=== PATIENT | male | born 1970 | race African-American/Black ===

== ENCOUNTER 2016-11-14 16:15 | Emergency (ER) | payer MEDICAID, OTHER ==
[~2016-11-14] VITALS: Ht 167.6 cm; Wt 94.5 kg
[~2016-11-14 16:15] MED LIST: DSS100 PO; GABA-529 PO; INSU100V12 SQ; OMEP20 PO; QUET300T2 PO
[2016-11-14 16:46] LABS: GLUCOSE,POINT OF CARE 84 MG/DL (70-110)
[2016-11-14] MEDS ORDERED: LISI-660 PO (18:04)
[2016-11-14 18:07] LABS: GLUCOSE,POINT OF CARE 84 MG/DL (70-110)
[2016-11-14 18:58] LABS: BASOPHILS % (AUTO) 0.5 % (0.0-2.0); EOSINOPHILS % (AUTO) 1.6 % (1.0-6.0); HEMATOCRIT 43.5 % (41-53); HEMOGLOBIN 13.8 g/dL (13.5-17.5); LYMPHOCYTES # (AUTO) 4.4 K/uL (1.0-4.8); LYMPHOCYTES % (AUTO) 34.9 % (22.0-44.0); MEAN CORPUSCULAR HEMOGLOBIN 24.5 pg (26.0-34.0); MEAN CORPUSCULAR HGB CONC 31.8 G/dL (31.0-37.0); MEAN CORPUSCULAR VOLUME 77 fL (80-100); MONOCYTES # (AUTO) 0.7 K/uL (0.1-1.0); MONOCYTES % (AUTO) 5.9 % (2.0-9.0); NEUTROPHILS # (AUTO) 7.1 K/uL (1.8-7.7); NEUTROPHILS % (AUTO) 57.1 % (40.0-70.0); PLATELET COUNT (AUTO) 330 K/uL (150-450); RED BLOOD CELL COUNT(AUTO) 5.64 MIL/uL (4.50-5.90); RED CELL DISTRIBUTION WIDTH 14.6 % (11.5-14.5); WHITE BLOOD COUNT (AUTO) 12.5 K/uL (4.5-11.0)
[2016-11-14 19:13] LABS: ANION GAP 13 mmol/L (8-16); CARBON DIOXIDE 24 mmol/L (22-29); CHLORIDE 99 mmol/L (98-107); CREATININE 1.04 mg/dL (0.60-1.30); GLOMERULAR FILTR. RATE CALC > 60 mL/min (>60); POTASSIUM 3.5 mmol/L (3.5-5.1); PROTHROMBIN TIME 10.9 SEC (9.4-11.6); SODIUM SERUM 136 mmol/L (136-145); UREA NITROGEN, BLOOD 18 mg/dL (7-18)
[2016-11-14 19:39] LABS: ALANINE AMINOTRANSFERASE 116 U/L (12-78); ALBUMIN 4.1 g/dL (3.4-5.0); ASPARTATE AMINOTRANSFERASE 127 U/L (15-37); CREATINE KINASE MB 8.1 ng/mL (0-5); TOTAL PROTEIN, SERUM 8.3 g/dL (6.4-8.2)
[2016-11-14 19:45] LABS: CREATINE KINASE, TOTAL 1272 U/L (39-308)
[2016-11-14 19:47] LABS: B-TYPE NATRIURETIC PEPTIDE 9 pg/mL (0-100)
[2016-11-14 20:00] LABS: APPEARANCE,URINE CLEAR (CLEAR); GLUCOSE, URINE (UA) NEGATIVE (NEGATIVE); KETONES,URINE 40 mg/dL (NEGATIVE); LEUKOCYTE ESTERASE ,URINE NEGATIVE (NEGATIVE); OCCULT BLOOD,URINE NEGATIVE (NEGATIVE); PH,URINE 5.5 (5.0-8.0); PROTEIN,URINE SEE CONFIRM (NEGATIVE)
[2016-11-14 20:04] LABS: ADD UA MICROSCOPIC YES; RBC,URINE 0-2 /HPF (0-2); SULFOSALICYLIC ACID,URINE 1+ (Negative); WBC,URINE 0-2 /HPF (0-5)
[2016-11-14 20:05] LABS: SQUAMOUS EPITHELIAL CELL,UR Rare /LPF (None Seen)
[2016-11-14 20:17] LABS: RBC MORPHOLOGY COMMENT ABNORMAL RBC MORPH
[2016-11-14 20:39] VITALS: BP 156/85
== END 2016-11-14 20:43 | disposition home or self-care (01) ==
LOC: EMS 16:16
DX: R07.89 Other chest pain (principal); F15.10 Other stimulant abuse, uncomplicated; R10.13 Epigastric pain; E11.9 Type 2 diabetes mellitus without complications; I10 Essential (primary) hypertension; F20.0 Paranoid schizophrenia; Z79.4 Long term (current) use of insulin
CPT/HCPCS: 82962; 93005; 99285

== ENCOUNTER 2017-02-13 17:13 | Inpatient (IN) | payer MEDICAID, OTHER ==
[~2017-02-13] VITALS: Ht 172.7 cm; Wt 92.5 kg
[~2017-02-13 17:13] MED LIST changes: +LISI-660 PO
[2017-02-13 18:45] LABS: EOSINOPHILS % (AUTO) 6.3 % (1.0-6.0); HEMATOCRIT 45.4 % (41-53); HEMOGLOBIN 13.8 g/dL (13.5-17.5); LYMPHOCYTES # (AUTO) 2.2 K/uL (1.0-4.8); LYMPHOCYTES % (AUTO) 39.9 % (22.0-44.0); MEAN CORPUSCULAR HEMOGLOBIN 23.9 pg (26.0-34.0); MEAN CORPUSCULAR HGB CONC 30.3 G/dL (31.0-37.0); MEAN CORPUSCULAR VOLUME 79 fL (80-100); MONOCYTES # (AUTO) 0.3 K/uL (0.1-1.0); MONOCYTES % (AUTO) 5.8 % (2.0-9.0); NEUTROPHILS # (AUTO) 2.6 K/uL (1.8-7.7); PLATELET COUNT (AUTO) 263 K/uL (150-450); RED BLOOD CELL COUNT(AUTO) 5.75 MIL/uL (4.50-5.90); RED CELL DISTRIBUTION WIDTH 14.4 % (11.5-14.5); WHITE BLOOD COUNT (AUTO) 5.6 K/uL (4.5-11.0)
[2017-02-13 19:17] LABS: RBC MORPHOLOGY COMMENT ABNORMAL RBC MORPH
[2017-02-13 19:21] LABS: ANION GAP 5 mmol/L (8-16); CALCIUM, TOTAL 9.3 mg/dL (8.8-10.5); CARBON DIOXIDE 30 mmol/L (22-29); CHLORIDE 102 mmol/L (98-107); CREATININE 0.83 mg/dL (0.60-1.30); GLOMERULAR FILTR. RATE CALC > 60 mL/min (>60); POTASSIUM 4.2 mmol/L (3.5-5.1); SODIUM SERUM 137 mmol/L (136-145); UREA NITROGEN, BLOOD 7 mg/dL (7-18)
[2017-02-13 19:28] LABS: ALANINE AMINOTRANSFERASE 120 U/L (12-78); ALBUMIN 3.9 g/dL (3.4-5.0); ASPARTATE AMINOTRANSFERASE 26 U/L (15-37); BILIRUBIN,TOTAL 0.2 mg/dL (0.1-1.0); TOTAL PROTEIN, SERUM 8.2 g/dL (6.4-8.2)
[2017-02-13 19:47] LABS: GLUCOSE,POINT OF CARE 163 MG/DL (70-110)
[2017-02-13] MEDS ORDERED: LORazepam 2 MG TABLET PO ONE (20:15)
[2017-02-13] MEDS ORDERED: OxyCODONE HCL/ACETAMINOPHEN 5-325 MG TABLET PO ONE (20:30)
[2017-02-13] MEDS ORDERED: OLANZapine 5 MG RAPDIS TABLET PO PRN (20:45)
[2017-02-13] MEDS ORDERED: ZOLPIDEM TARTRATE 10 MG TABLET PO PRN (20:45)
[2017-02-13 21:29] LABS: CHOL/HDL RATIO 3.2 (4.2-7.3)
[2017-02-13 21:34] LABS: ADD UA MICROSCOPIC NO; APPEARANCE,URINE CLEAR (CLEAR); GLUCOSE, URINE (UA) NEGATIVE (NEGATIVE); KETONES,URINE NEGATIVE (NEGATIVE); LEUKOCYTE ESTERASE ,URINE NEGATIVE (NEGATIVE); OCCULT BLOOD,URINE NEGATIVE (NEGATIVE); PH,URINE 7.5 (5.0-8.0); PROTEIN,URINE NEGATIVE (NEGATIVE)
[2017-02-13] MEDS ORDERED: CloNIDine HCL 0.1 MG TABLET PO PRN (22:00)
[2017-02-13] MEDS ORDERED: DEXTROSE 50%-WATER 25 GM/50 ML SYRINGE IVP PRN (22:00)
[2017-02-13 22:30] VITALS: BP 160/102
[2017-02-14 06:36] LABS: GLUCOSE,POINT OF CARE 79 MG/DL (70-110)
[2017-02-14 06:59] VITALS: BP 141/89
[2017-02-14] MEDS: INSULIN ASPART 100 UNITS/ML SQ PRN (07:04)
[2017-02-14] MEDS ORDERED: HALOPERIDOL LACTATE 5 MG/ML VIAL IM ONE (09:45)
[2017-02-14] MEDS ORDERED: DiphenhydrAMINE HCL 50 MG/ML VIAL IM ONE (09:45)
[2017-02-14] MEDS ORDERED: LORazepam 2 MG/ML VIAL IM ONE (09:45)
[2017-02-14 12:12] LABS: GLUCOSE,POINT OF CARE 128 MG/DL (70-110)
[2017-02-14] MEDS ORDERED: PROMETHAZINE HCL 25 MG TABLET PO PRN (12:15)
[2017-02-14] MEDS ORDERED: HydrOXYzine PAMOATE 50 MG CAPSULE PO PRN (12:15)
[2017-02-14] MEDS ORDERED: ACETAMINOPHEN 325 MG TABLET PO PRN (12:15)
[2017-02-14] MEDS ORDERED: MAGNESIUM HYDROXIDE SUSPENSION 30 ML UDCUP PO PRN (12:15)
[2017-02-14] MEDS ORDERED: TUBERCULIN, PURIFIED PROTEIN DERIVATIVE 5 TU/0.1 ML SYG ID ONE (12:15)
[2017-02-14] MEDS ORDERED: GuaiFENesin/D-METHORPHAN [SUGAR-FREE] 200-20MG/10 ML SYRUP UDCUP PO PRN (12:15)
[2017-02-14] MEDS ORDERED: MAG HYDROX/AL HYDROX/SIMETH ES 30 ML SUSPENSION UDCUP PO PRN (12:15)
[2017-02-14] MEDS ORDERED: LOPERAMIDE HCL 2 MG CAPSULE PO PRN (12:15)
[2017-02-14 16:00] VITALS: BP 138/72
[2017-02-14] MEDS: THIAMINE HCL 100 MG TABLET PO SCH (17:32)
[2017-02-14] MEDS ORDERED: IBUPROFEN 600 MG TABLET PO PRN (17:45)
[2017-02-14] MEDS: QUEtiapine FUMARATE 200 MG TABLET PO SCH (21:00)
[2017-02-14] MEDS: INSULIN DETEMIR 100 UNITS/ML SQ SCH (21:00)
[2017-02-14] MEDS ORDERED: QUEtiapine FUMARATE 200 MG TABLET PO SCH (21:00)
[2017-02-14] MEDS: TraZODone HCL 150 MG TABLET PO SCH (21:00)
[2017-02-15] MEDS: QUEtiapine FUMARATE 100 MG TABLET PO PRN (00:17)
[2017-02-15] MEDS: LORazepam 2 MG TABLET PO PRN (00:17)
[2017-02-15 06:27] LABS: GLUCOSE,POINT OF CARE 132 MG/DL (70-110)
[2017-02-15] MEDS: LISINOPRIL 10 MG TABLET PO SCH (09:00)
[2017-02-15] MEDS: GABAPENTIN 100 MG CAPSULE PO SCH ×3 (09:00→16:48)
[2017-02-15] MEDS: FOLIC ACID 1 MG TABLET PO SCH (09:00)
[2017-02-15] MEDS: NALTREXONE HCL 50 MG TABLET PO SCH (09:00)
[2017-02-15] MEDS: MULTIVITAMINS WITH MINERALS, THERAPEUTIC TABLET PO SCH (09:00)
[2017-02-15] MEDS: THIAMINE HCL 100 MG TABLET PO SCH ×2 (09:00→16:48)
[2017-02-15] MEDS ORDERED: TraZODone HCL 150 MG TABLET PO ONE (09:15)
[2017-02-15] MEDS ORDERED: QUEtiapine FUMARATE 200 MG TABLET PO ONE (09:15)
[2017-02-15] MEDS: TraZODone HCL 150 MG TABLET PO SCH (21:00)
[2017-02-15] MEDS: QUEtiapine FUMARATE 200 MG TABLET PO SCH (21:00)
[2017-02-15] MEDS: INSULIN DETEMIR 100 UNITS/ML SQ SCH (21:00)
[2017-02-16] MEDS: LORazepam 2 MG TABLET PO PRN ×2 (06:38→08:25)
[2017-02-16] MEDS: INSULIN ASPART 100 UNITS/ML SQ PRN (07:03)
[2017-02-16] MEDS: LISINOPRIL 10 MG TABLET PO SCH (08:25)
[2017-02-16] MEDS: MULTIVITAMINS WITH MINERALS, THERAPEUTIC TABLET PO SCH (08:25)
[2017-02-16] MEDS: GABAPENTIN 100 MG CAPSULE PO SCH ×2 (08:25→12:42)
[2017-02-16] MEDS: THIAMINE HCL 100 MG TABLET PO SCH (08:25)
[2017-02-16] MEDS: FOLIC ACID 1 MG TABLET PO SCH (08:25)
[2017-02-16] MEDS: NALTREXONE HCL 50 MG TABLET PO SCH (08:25)
[2017-02-16] MEDS: QUEtiapine FUMARATE 100 MG TABLET PO PRN (08:27)
[2017-02-16 08:45] VITALS: BP 151/84
[2017-02-16] MEDS ORDERED: TRAZ150 PO (11:14)
[2017-02-16] MEDS ORDERED: NALT50 PO (11:14)
[2017-02-16 12:12] LABS: GLUCOSE,POINT OF CARE 266 MG/DL (70-110)
== END 2017-02-16 15:44 | disposition home or self-care (01) | DRG 750 ==
LOC: EMS 17:15 → 3EI 20:30
PROVIDERS: ADMIT Psychiatry & Neurology Psychiatry; ATTEND Psychiatry & Neurology Psychiatry
PROC: GZ51ZZZ Individual Psychotherapy, Behavioral (ICD-10-PCS; principal; 2017-02-13)
DX: F25.0 Schizoaffective disorder, bipolar type (principal); E11.40 Type 2 diabetes mellitus with diabetic neuropathy, unspecified; J44.9 Chronic obstructive pulmonary disease, unspecified; I10 Essential (primary) hypertension; F17.210 Nicotine dependence, cigarettes, uncomplicated; E66.9 Obesity, unspecified; F41.9 Anxiety disorder, unspecified; F19.10 Other psychoactive substance abuse, uncomplicated; Z53.29 Procedure and treatment not carried out because of patient's decision for other reasons; F12.90 Cannabis use, unspecified, uncomplicated; Z71.6 Tobacco abuse counseling; Z71.51 Drug abuse counseling and surveillance of drug abuser; Z91.19 Patient's noncompliance with other medical treatment and regimen; Z68.31 Body mass index [BMI] 31.0-31.9, adult; Z79.899 Other long term (current) drug therapy
CPT/HCPCS: 82962; 99285; G0480; J1200; J1630; J2060

== ENCOUNTER 2019-08-05 13:23 | Emergency (ER) | payer MEDICAID ==
[~2019-08-05] VITALS: Ht 167.6 cm; Wt 90.0 kg
[~2019-08-05 13:23] MED LIST changes: -DSS100 PO; +NALT50TA6 PO; -OMEP20 PO; +TRAZ150 PO
[2019-08-05] MEDS ORDERED: PERCT10 PO (13:39)
[2019-08-05] MEDS ORDERED: METF-960 PO (13:39)
[2019-08-05] MEDS ORDERED: ARIP5TAB8 PO (13:39)
[2019-08-05] MEDS ORDERED: SERT100T12 PO (13:39)
[2019-08-05 14:34] LABS: APPEARANCE,URINE CLEAR (CLEAR); BILIRUBIN,URINE NEGATIVE (NEGATIVE); GLUCOSE, URINE (UA) >=1000 mg/dL (NEGATIVE); KETONES,URINE TRACE mg/dL (NEGATIVE); LEUKOCYTE ESTERASE ,URINE NEGATIVE (NEGATIVE); NITRATE,URINE NEGATIVE (NEGATIVE); OCCULT BLOOD,URINE NEGATIVE (NEGATIVE); PH,URINE 5.5 (5.0-8.0); PROTEIN,URINE NEGATIVE (NEGATIVE)
[2019-08-05 14:47] LABS: BACTERIA,URINE None Seen /HPF (None Seen); RBC,URINE None Seen /HPF (0-2); SQUAMOUS EPITHELIAL CELL,UR Few /LPF (None Seen); WBC,URINE None Seen /HPF (0-5)
[2019-08-05 14:49] LABS: BASOPHILS % (AUTO) 0.7 % (0.0-2.0); HEMATOCRIT 43.5 % (41-53); HEMOGLOBIN 13.9 g/dL (13.5-17.5); LYMPHOCYTES # (AUTO) 1.4 K/uL (1.0-4.8); LYMPHOCYTES % (AUTO) 28.5 % (22.0-44.0); MEAN CORPUSCULAR HEMOGLOBIN 24.3 pg (26.0-34.0); MEAN CORPUSCULAR HGB CONC 31.9 G/dL (31.0-37.0); MEAN CORPUSCULAR VOLUME 76 fL (80-100); MONOCYTES # (AUTO) 0.3 K/uL (0.1-1.0); MONOCYTES % (AUTO) 6.8 % (2.0-9.0); PLATELET COUNT (AUTO) 234 K/uL (150-450); RED BLOOD CELL COUNT(AUTO) 5.71 MIL/uL (4.50-5.90); RED CELL DISTRIBUTION WIDTH 16.4 % (11.5-14.5)
[2019-08-05 15:05] LABS: ANION GAP 10 mmol/L (8-16); CALCIUM, TOTAL 8.7 mg/dL (8.8-10.5); CARBON DIOXIDE 26 mmol/L (22-29); CHLORIDE 99 mmol/L (98-107); CREATININE 0.93 mg/dL (0.60-1.30); GLOMERULAR FILTR. RATE CALC > 60 mL/min (>60); GLUCOSE,RANDOM 278 mg/dL (70-110); POTASSIUM 3.7 mmol/L (3.5-5.1); SODIUM SERUM 135 mmol/L (136-145); UREA NITROGEN, BLOOD 10 mg/dL (7-18)
[2019-08-05 15:12] LABS: ALANINE AMINOTRANSFERASE 23 U/L (12-78); ALBUMIN 3.6 g/dL (3.4-5.0); ALKALINE PHOSPHATASE 228 U/L (46-116); ASPARTATE AMINOTRANSFERASE 10 U/L (15-37); BILIRUBIN,TOTAL 0.3 mg/dL (0.1-1.0); TOTAL PROTEIN, SERUM 7.7 g/dL (6.4-8.2)
[2019-08-05 15:14] LABS: B-TYPE NATRIURETIC PEPTIDE 7 pg/mL (0-100)
[2019-08-05] MEDS ORDERED: ACETAMINOPHEN 500 MG TABLET PO ONE (15:45)
[2019-08-05 16:08] LABS: PLATELET MORPHOLOGY COMMENT LARGE PLTS PRESENT
[2019-08-05 16:10] VITALS: BP 133/88
== END 2019-08-05 16:11 | disposition home or self-care (01) ==
LOC: EMS 13:24
DX: E11.9 Type 2 diabetes mellitus without complications (principal); M79.10 Myalgia, unspecified site; R07.2 Precordial pain; F31.9 Bipolar disorder, unspecified; I10 Essential (primary) hypertension; F20.9 Schizophrenia, unspecified; Z79.899 Other long term (current) drug therapy; Z79.4 Long term (current) use of insulin; Z79.84 Long term (current) use of oral hypoglycemic drugs
CPT/HCPCS: 93005

== ENCOUNTER 2019-11-01 13:55 | Inpatient (IN) | payer MEDICAID ==
[~2019-11-01] VITALS: Ht 167.6 cm; Wt 76.7 kg
[~2019-11-01 13:55] MED LIST changes: -GABA-529 PO; +GABA-531 PO; +INSLAN SQ; -INSU100V12 SQ; -LISI-660 PO; +LISI-661 PO; +METF-960 PO; -NALT50TA6 PO; +SERT100T12 PO
[2019-11-01 19:52] VITALS: BP 114/72
[2019-11-01] MEDS ORDERED: HALOPERIDOL 5 MG TABLET PO PRN (20:00)
[2019-11-01] MEDS ORDERED: ZOLPIDEM TARTRATE 10 MG TABLET PO PRN (20:00)
[2019-11-01 20:25] VITALS: BP 104/60
[2019-11-01] MEDS ORDERED: INSULIN GLARGINE,HUM.REC.ANLOG 100 UNITS/ML SQ SCH (23:00)
[2019-11-02 01:07] VITALS: BP 124/63
[2019-11-02] MEDS: LORazepam 2 MG TABLET PO PRN ×2 (05:00→17:40)
[2019-11-02] MEDS ORDERED: GLUCAGON,HUMAN RECOMBINANT 1 MG VIAL IM PRN (05:45)
[2019-11-02 06:25] LABS: GLUCOMETER DEV NAME(LOC) BV2S.; GLUCOSE,POINT OF CARE 269 MG/DL (70-110)
[2019-11-02] MEDS: MetFORMIN HCL 500 MG TABLET PO SCH (06:40)
[2019-11-02] MEDS: INSULIN LISPRO 100 UNITS/ML SQ PRN ×4 (06:42→21:38)
[2019-11-02 09:00] VITALS: BP 136/74
[2019-11-02] MEDS: GABAPENTIN 300 MG CAPSULE PO SCH ×3 (09:55→16:30)
[2019-11-02] MEDS: LISINOPRIL 10 MG TABLET PO SCH (09:55)
[2019-11-02 12:36] LABS: GLUCOMETER DEV NAME(LOC) BV2S.; GLUCOSE,POINT OF CARE 279 MG/DL (70-110)
[2019-11-02 16:05] VITALS: BP 134/67
[2019-11-02 17:10] LABS: GLUCOMETER DEV NAME(LOC) BV2S.; GLUCOSE,POINT OF CARE 353 MG/DL (70-110)
[2019-11-02] MEDS: TraZODone HCL 150 MG TABLET PO SCH (20:15)
[2019-11-02] MEDS: QUEtiapine FUMARATE 300 MG TABLET PO SCH (20:16)
[2019-11-02] MEDS: SERTRALINE HCL 100 MG TABLET PO SCH (20:16)
[2019-11-02 21:03] LABS: GLUCOMETER DEV NAME(LOC) BV2S.; GLUCOSE,POINT OF CARE 219 MG/DL (70-110)
[2019-11-02] MEDS ORDERED: INSULIN GLARGINE,HUM.REC.ANLOG 100 UNITS/ML SQ SCH (23:00)
[2019-11-03 05:35] VITALS: BP 119/68
[2019-11-03 06:37] LABS: GLUCOMETER DEV NAME(LOC) BV2S.; GLUCOSE,POINT OF CARE 277 MG/DL (70-110)
[2019-11-03 07:17] LABS: BASOPHILS % (AUTO) 0.6 % (0.0-2.0); EOSINOPHILS % (AUTO) 2.9 % (1.0-6.0); HEMATOCRIT 36.6 % (41-53); HEMOGLOBIN 11.6 g/dL (13.5-17.5); LYMPHOCYTES # (AUTO) 3.1 K/uL (1.0-4.8); LYMPHOCYTES % (AUTO) 52.3 % (22.0-44.0); MEAN CORPUSCULAR HEMOGLOBIN 24.7 pg (26.0-34.0); MEAN CORPUSCULAR HGB CONC 31.6 G/dL (31.0-37.0); MEAN CORPUSCULAR VOLUME 78 fL (80-100); MONOCYTES # (AUTO) 0.7 K/uL (0.1-1.0); MONOCYTES % (AUTO) 11.4 % (2.0-9.0); NEUTROPHILS % (AUTO) 32.8 % (40.0-70.0); PLATELET COUNT (AUTO) 176 K/uL (150-450); RED BLOOD CELL COUNT(AUTO) 4.68 MIL/uL (4.50-5.90); RED CELL DISTRIBUTION WIDTH 15.4 % (11.5-14.5)
[2019-11-03] MEDS: MetFORMIN HCL 500 MG TABLET PO SCH (07:19)
[2019-11-03] MEDS: INSULIN LISPRO 100 UNITS/ML SQ PRN ×4 (07:20→21:11)
[2019-11-03 07:39] LABS: ALANINE AMINOTRANSFERASE 42 U/L (12-78); ALBUMIN 2.9 g/dL (3.4-5.0); ALKALINE PHOSPHATASE 189 U/L (46-116); ANION GAP 8 mmol/L (8-16); ASPARTATE AMINOTRANSFERASE 14 U/L (15-37); BILIRUBIN,TOTAL 0.1 mg/dL (0.1-1.0); CALCIUM, TOTAL 8.3 mg/dL (8.8-10.5); CARBON DIOXIDE 26 mmol/L (22-29); CHLORIDE 103 mmol/L (98-107); CHOL/HDL RATIO 2.7 (4.2-7.3); CHOLESTEROL 120 mg/dL (131-200); CREATININE 0.75 mg/dL (0.60-1.30); FREE T4 (FREE THYROXINE) 0.91 ng/dL (0.76-1.46); GLOMERULAR FILTR. RATE CALC > 60 mL/min (>60); GLUCOSE,RANDOM 285 mg/dL (70-110); HDL CHOLESTEROL 45 mg/dL (40-60); LDL CHOL (CALC.) 64 mg/dL (0-130); SODIUM SERUM 137 mmol/L (136-145); THYROID STIMULATING HORMONE 3.45 uIU/mL (0.36-3.74); TOTAL PROTEIN, SERUM 6.3 g/dL (6.4-8.2); TRIGLYCERIDES 55 mg/dL (15-150); UREA NITROGEN, BLOOD 7 mg/dL (7-18)
[2019-11-03 07:43] LABS: HEMOGLOBIN A1C 10.2 % (4.5-6.2)
[2019-11-03] MEDS: LISINOPRIL 10 MG TABLET PO SCH (08:17)
[2019-11-03] MEDS: GABAPENTIN 300 MG CAPSULE PO SCH ×3 (08:18→16:47)
[2019-11-03 08:50] VITALS: BP 126/76
[2019-11-03 11:07] LABS: GLUCOMETER DEV NAME(LOC) BV2S.; GLUCOSE,POINT OF CARE 204 MG/DL (70-110)
[2019-11-03 16:09] VITALS: BP 117/68
[2019-11-03] MEDS: LORazepam 2 MG TABLET PO PRN (16:47)
[2019-11-03 17:19] LABS: GLUCOMETER DEV NAME(LOC) BV2S.; GLUCOSE,POINT OF CARE 295 MG/DL (70-110)
[2019-11-03 20:34] LABS: GLUCOMETER DEV NAME(LOC) BV2S.; GLUCOSE,POINT OF CARE 325 MG/DL (70-110)
[2019-11-03] MEDS: TraZODone HCL 150 MG TABLET PO SCH (20:37)
[2019-11-03] MEDS: QUEtiapine FUMARATE 300 MG TABLET PO SCH (20:37)
[2019-11-03] MEDS: SERTRALINE HCL 100 MG TABLET PO SCH (20:37)
[2019-11-03] MEDS ORDERED: INSULIN GLARGINE,HUM.REC.ANLOG 100 UNITS/ML SQ SCH (21:00)
[2019-11-04 04:32] VITALS: BP 109/61
[2019-11-04 06:26] LABS: GLUCOMETER DEV NAME(LOC) BV2S.; GLUCOSE,POINT OF CARE 293 MG/DL (70-110)
[2019-11-04] MEDS: MetFORMIN HCL 500 MG TABLET PO SCH (07:16)
[2019-11-04] MEDS: INSULIN LISPRO 100 UNITS/ML SQ PRN ×4 (07:17→20:13)
[2019-11-04 08:25] VITALS: BP 140/80
[2019-11-04] MEDS: GABAPENTIN 300 MG CAPSULE PO SCH ×3 (10:02→16:41)
[2019-11-04] MEDS: LISINOPRIL 10 MG TABLET PO SCH (10:03)
[2019-11-04 11:25] LABS: GLUCOMETER DEV NAME(LOC) BV2S.; GLUCOSE,POINT OF CARE 390 MG/DL (70-110)
[2019-11-04 16:22] LABS: GLUCOMETER DEV NAME(LOC) BV2S.; GLUCOSE,POINT OF CARE 305 MG/DL (70-110)
[2019-11-04 16:29] VITALS: BP 120/80
[2019-11-04] MEDS: LORazepam 2 MG TABLET PO PRN (17:28)
[2019-11-04] MEDS: QUEtiapine FUMARATE 300 MG TABLET PO SCH (20:10)
[2019-11-04] MEDS: TraZODone HCL 150 MG TABLET PO SCH (20:11)
[2019-11-04] MEDS: SERTRALINE HCL 100 MG TABLET PO SCH ×2 (20:11→20:51)
[2019-11-04 20:19] LABS: GLUCOMETER DEV NAME(LOC) BV2S.; GLUCOSE,POINT OF CARE 338 MG/DL (70-110)
[2019-11-04] MEDS ORDERED: INSULIN GLARGINE,HUM.REC.ANLOG 100 UNITS/ML SQ SCH (21:00)
[2019-11-05 01:10] VITALS: BP 103/65
[2019-11-05] MEDS: LORazepam 2 MG TABLET PO PRN ×2 (04:27→14:05)
[2019-11-05 06:25] LABS: GLUCOMETER DEV NAME(LOC) BV2S.; GLUCOSE,POINT OF CARE 218 MG/DL (70-110)
[2019-11-05] MEDS: MetFORMIN HCL 500 MG TABLET PO SCH (06:45)
[2019-11-05] MEDS: INSULIN LISPRO 100 UNITS/ML SQ PRN ×2 (06:47→21:14)
[2019-11-05 08:31] VITALS: BP 107/72
[2019-11-05] MEDS: GABAPENTIN 300 MG CAPSULE PO SCH ×3 (08:54→17:38)
[2019-11-05] MEDS: LISINOPRIL 10 MG TABLET PO SCH (08:54)
[2019-11-05 16:33] VITALS: BP 131/79
[2019-11-05 17:00] LABS: GLUCOMETER DEV NAME(LOC) BV2S.; GLUCOSE,POINT OF CARE 472 MG/DL (70-110)
[2019-11-05] MEDS ORDERED: MAG HYDROX/AL HYDROX/SIMETH 30 ML SUSP UDCUP PO PRN (17:00)
[2019-11-05] MEDS ORDERED: INSULIN LISPRO 100 UNITS/ML SQ ONE (17:00)
[2019-11-05] MEDS: QUEtiapine FUMARATE 300 MG TABLET PO SCH (20:23)
[2019-11-05] MEDS: TraZODone HCL 150 MG TABLET PO SCH (20:23)
[2019-11-05 20:59] LABS: GLUCOMETER DEV NAME(LOC) BV2S.; GLUCOSE,POINT OF CARE 263 MG/DL (70-110)
[2019-11-05] MEDS ORDERED: INSULIN GLARGINE,HUM.REC.ANLOG 100 UNITS/ML SQ SCH (21:00)
[2019-11-05] MEDS: SERTRALINE HCL 100 MG TABLET PO SCH (21:00)
[2019-11-06 06:22] VITALS: BP 105/60
[2019-11-06 06:31] LABS: GLUCOMETER DEV NAME(LOC) BV2S.; GLUCOSE,POINT OF CARE 225 MG/DL (70-110)
[2019-11-06] MEDS: MetFORMIN HCL 500 MG TABLET PO SCH (06:35)
[2019-11-06] MEDS: INSULIN LISPRO 100 UNITS/ML SQ PRN (06:38)
== END 2019-11-06 08:20 | disposition home or self-care (01) | DRG 750 ==
LOC: B2S 20:05
PROVIDERS: ADMIT Psychiatry & Neurology Psychiatry; ATTEND Psychiatry & Neurology Psychiatry
DX: F25.0 Schizoaffective disorder, bipolar type (principal); E11.42 Type 2 diabetes mellitus with diabetic polyneuropathy; R45.851 Suicidal ideations; I10 Essential (primary) hypertension; F41.9 Anxiety disorder, unspecified; F10.10 Alcohol abuse, uncomplicated; R45.87 Impulsiveness; F19.90 Other psychoactive substance use, unspecified, uncomplicated; K44.9 Diaphragmatic hernia without obstruction or gangrene; Z59.0 Homelessness; Z79.899 Other long term (current) drug therapy; Z91.5 Personal history of self-harm
CPT/HCPCS: 83036; 84439; 84443; 87081; J1815

== ENCOUNTER 2023-01-02 13:46 | Inpatient (IN) | payer MEDICAID, OTHER ==
[~2023-01-02] VITALS: Ht 167.6 cm; Wt 93.9 kg
[~2023-01-02 13:46] MED LIST changes: +GABA-1181 PO; -GABA-531 PO; -LISI-661 PO; +LISI-893 PO; +METF-1211 PO; -METF-960 PO; +SERT-162 PO; -SERT100T12 PO; -TRAZ150 PO; +TRAZ150T80 PO
[2023-01-02 14:16] LABS: GLUCOMETER DEV NAME(LOC) ERT.5; GLUCOSE,POINT OF CARE 304 MG/DL (70-110)
[2023-01-02] MEDS ORDERED: LORazepam 2 MG TABLET PO ONE (16:30)
[2023-01-02] MEDS ORDERED: OLANZapine 5 MG TABLET PO ONE (16:30)
[2023-01-02] MEDS: OLANZapine 5 MG RAPDIS TABLET PO PRN (16:36)
[2023-01-02 16:58] LABS: APPEARANCE,URINE CLEAR (CLEAR); BILIRUBIN,URINE NEGATIVE (NEGATIVE); GLUCOSE, URINE (UA) >=1000 mg/dL (NEGATIVE); KETONES,URINE NEGATIVE (NEGATIVE); LEUKOCYTE ESTERASE ,URINE NEGATIVE (NEGATIVE); NITRATE,URINE NEGATIVE (NEGATIVE); OCCULT BLOOD,URINE NEGATIVE (NEGATIVE); PH,URINE 6.5 (5.0-8.0); PROTEIN,URINE TRACE mg/dL (NEGATIVE); SPECIFIC GRAVITIY, URINE 1.041 (1.003-1.030); UROBILINOGEN,URINE <=1.0 mg/dL (<=1.0)
[2023-01-02 17:14] LABS: BACTERIA,URINE None Seen /HPF (None Seen); RBC,URINE None Seen /HPF (0-2); SQUAMOUS EPITHELIAL CELL,UR None Seen /LPF (None Seen); WBC,URINE 0-2 /HPF (0-5)
[2023-01-02] MEDS ORDERED: ACETAMINOPHEN 325 MG TABLET PO PRN (21:00)
[2023-01-02] MEDS ORDERED: GuaiFENesin/D-METHORPHAN [SUGAR-FREE] 200-20MG/10 ML SYRUP UDCUP PO PRN (21:00)
[2023-01-02] MEDS ORDERED: OLANZapine 5 MG RAPDIS TABLET PO ONE (21:00)
[2023-01-02] MEDS ORDERED: MAGNESIUM HYDROXIDE SUSPENSION 30 ML UDCUP PO PRN (21:00)
[2023-01-02] MEDS ORDERED: HydrOXYzine PAMOATE 50 MG CAPSULE PO PRN (21:00)
[2023-01-02] MEDS ORDERED: PROMETHAZINE HCL 25 MG TABLET PO PRN (21:00)
[2023-01-02] MEDS ORDERED: TUBERCULIN, PURIFIED PROTEIN DERIVATIVE 5 TU/0.1 ML SYRINGE ID ONE (21:00)
[2023-01-02] MEDS ORDERED: LOPERAMIDE HCL 2 MG CAPSULE PO PRN (21:00)
[2023-01-02 22:10] LABS: COVID AG,FIA SOURCE NASAL SWAB
[2023-01-02] MEDS: GABAPENTIN 400 MG CAPSULE PO SCH (23:00)
[2023-01-02] MEDS: MIRTAZAPINE 15 MG TABLET PO SCH (23:00)
[2023-01-02 23:45] VITALS: BP 166/106
[2023-01-03 01:29] VITALS: BP 155/90
[2023-01-03] MEDS: LORazepam 2 MG TABLET PO PRN ×3 (04:37→22:29)
[2023-01-03] MEDS: MULTIVITAMINS WITH MINERALS, THERAPEUTIC TABLET PO SCH (09:46)
[2023-01-03] MEDS: BuPROPion HCL XL 150 MG ER TABLET PO SCH (09:46)
[2023-01-03] MEDS: GABAPENTIN 400 MG CAPSULE PO SCH ×4 (09:46→20:27)
[2023-01-03] MEDS: THIAMINE 100 MG TABLET PO SCH ×2 (09:46→16:59)
[2023-01-03] MEDS: FOLIC ACID 1 MG TABLET PO SCH (09:46)
[2023-01-03] MEDS ORDERED: DEXTROSE 50%-WATER 25 GM/50 ML SYRINGE IVP PRN (11:30)
[2023-01-03] MEDS: INSULIN LISPRO 100 UNITS/ML SQ PRN ×3 (11:46→21:07)
[2023-01-03 11:51] LABS: GLUCOMETER DEV NAME(LOC) 3E.C; GLUCOSE,POINT OF CARE 314 MG/DL (70-110)
[2023-01-03 12:49] LABS: BASOPHILS % (AUTO) 1.8 % (0.0-2.0); EOSINOPHILS % (AUTO) 1.8 % (1.0-6.0); HEMATOCRIT 32.7 % (41-53); HEMOGLOBIN 10.1 g/dL (13.5-17.5); LYMPHOCYTES # (AUTO) 2.3 K/uL (1.0-4.8); LYMPHOCYTES % (AUTO) 33.3 % (22.0-44.0); MEAN CORPUSCULAR HEMOGLOBIN 20.3 pg (26.0-34.0); MEAN CORPUSCULAR HGB CONC 30.8 G/dL (31.0-37.0); MEAN CORPUSCULAR VOLUME 66 fL (80-100); MONOCYTES # (AUTO) 0.4 K/uL (0.1-1.0); MONOCYTES % (AUTO) 5.8 % (2.0-9.0); NEUTROPHILS # (AUTO) 3.9 K/uL (1.8-7.7); NEUTROPHILS % (AUTO) 57.3 % (40.0-70.0); PLATELET COUNT (AUTO) 312 K/uL (150-450); RED BLOOD CELL COUNT(AUTO) 4.95 MIL/uL (4.50-5.90); RED CELL DISTRIBUTION WIDTH 19.9 % (11.5-14.5)
[2023-01-03 13:01] LABS: ALANINE AMINOTRANSFERASE 14 U/L (12-78); ALKALINE PHOSPHATASE 151 U/L (46-116); ANION GAP 7 mmol/L (8-16); ASPARTATE AMINOTRANSFERASE 12 U/L (15-37); BILIRUBIN,TOTAL 0.2 mg/dL (0.1-1.0); CALCIUM, TOTAL 8.5 mg/dL (8.8-10.5); CARBON DIOXIDE 29 mmol/L (22-29); CHLORIDE 101 mmol/L (98-107); CREATININE 0.94 mg/dL (0.60-1.30); GLOMERULAR FILTR. RATE CALC > 60 mL/min (>60); POTASSIUM 4.2 mmol/L (3.5-5.1); SODIUM SERUM 137 mmol/L (136-145); TOTAL PROTEIN, SERUM 6.8 g/dL (6.4-8.2); UREA NITROGEN, BLOOD 9 mg/dL (7-18)
[2023-01-03 13:11] LABS: GLUCOSE,RANDOM 438 mg/dL (70-110)
[2023-01-03 13:12] LABS: CHOL/HDL RATIO 2.5 (4.2-7.3); THYROID STIMULATING HORMONE 2.74 uIU/mL (0.36-3.74)
[2023-01-03] MEDS ORDERED: INSULIN LISPRO 100 UNITS/ML SQ ONE (13:30)
[2023-01-03] MEDS: MAG HYDROX/AL HYDROX/SIMETH ES 30 ML SUSPENSION UDCUP PO PRN (15:27)
[2023-01-03 16:27] VITALS: BP 143/102
[2023-01-03 16:56] LABS: GLUCOMETER DEV NAME(LOC) 3E.C; GLUCOSE,POINT OF CARE 359 MG/DL (70-110)
[2023-01-03] MEDS: MetFORMIN HCL 500 MG TABLET PO SCH (16:59)
[2023-01-03] MEDS: LISINOPRIL 10 MG TABLET PO SCH (16:59)
[2023-01-03] MEDS: OLANZapine 5 MG RAPDIS TABLET PO PRN (18:15)
[2023-01-03] MEDS ORDERED: PALIPERIDONE PALMITATE 234 MG/1.5 ML SYRINGE IM ONE (20:00)
[2023-01-03 20:26] LABS: GLUCOMETER DEV NAME(LOC) 3E.C; GLUCOSE,POINT OF CARE 330 MG/DL (70-110)
[2023-01-03] MEDS: QUEtiapine FUMARATE 200 MG TABLET PO SCH (20:26)
[2023-01-03] MEDS: MIRTAZAPINE 15 MG TABLET PO SCH (20:27)
[2023-01-03 20:37] VITALS: BP 140/75
[2023-01-03] MEDS ORDERED: OLANZapine 5 MG RAPDIS TABLET PO SCH (21:00)
[2023-01-03] MEDS: INSULIN GLARGINE,HUM.REC.ANLOG 100 UNITS/ML SQ SCH (21:08)
[2023-01-03] MEDS: ZOLPIDEM TARTRATE 10 MG TABLET PO PRN (22:28)
[2023-01-04 06:26] LABS: GLUCOMETER DEV NAME(LOC) 3E.C; GLUCOSE,POINT OF CARE 328 MG/DL (70-110)
[2023-01-04] MEDS: MetFORMIN HCL 500 MG TABLET PO SCH ×2 (06:42→16:42)
[2023-01-04] MEDS: INSULIN LISPRO 100 UNITS/ML SQ PRN ×4 (06:43→21:09)
[2023-01-04] MEDS: THIAMINE 100 MG TABLET PO SCH ×2 (09:03→16:42)
[2023-01-04] MEDS: LISINOPRIL 10 MG TABLET PO SCH ×2 (09:03→16:42)
[2023-01-04] MEDS: MULTIVITAMINS WITH MINERALS, THERAPEUTIC TABLET PO SCH (09:03)
[2023-01-04] MEDS: GABAPENTIN 400 MG CAPSULE PO SCH ×4 (09:03→20:49)
[2023-01-04] MEDS: FOLIC ACID 1 MG TABLET PO SCH (09:03)
[2023-01-04] MEDS: BuPROPion HCL XL 150 MG ER TABLET PO SCH (09:03)
[2023-01-04 09:09] LABS: HEMOGLOBIN A1C 11.3 % (3.8-5.6)
[2023-01-04 09:20] LABS: CHOL/HDL RATIO 2.6 (4.2-7.3)
[2023-01-04 09:29] VITALS: BP 145/98
[2023-01-04 11:46] LABS: GLUCOMETER DEV NAME(LOC) 3E.C; GLUCOSE,POINT OF CARE 295 MG/DL (70-110)
[2023-01-04] MEDS: LORazepam 2 MG TABLET PO PRN (16:00)
[2023-01-04] MEDS: MAG HYDROX/AL HYDROX/SIMETH ES 30 ML SUSPENSION UDCUP PO PRN (16:01)
[2023-01-04 16:22] VITALS: BP 153/87
[2023-01-04 17:16] LABS: GLUCOMETER DEV NAME(LOC) 3E.C; GLUCOSE,POINT OF CARE 388 MG/DL (70-110)
[2023-01-04] MEDS: QUEtiapine FUMARATE 100 MG TABLET PO PRN (19:00)
[2023-01-04] MEDS: QUEtiapine FUMARATE 200 MG TABLET PO SCH (20:49)
[2023-01-04] MEDS: MIRTAZAPINE 15 MG TABLET PO SCH (20:49)
[2023-01-04] MEDS: INSULIN GLARGINE,HUM.REC.ANLOG 100 UNITS/ML SQ SCH (21:09)
[2023-01-04 21:16] LABS: GLUCOMETER DEV NAME(LOC) 3E.C; GLUCOSE,POINT OF CARE 306 MG/DL (70-110)
[2023-01-04 21:29] VITALS: BP 133/75
[2023-01-05] MEDS: QUEtiapine FUMARATE 100 MG TABLET PO PRN (02:14)
[2023-01-05] MEDS: LORazepam 2 MG TABLET PO PRN (02:14)
[2023-01-05 05:46] LABS: GLUCOMETER DEV NAME(LOC) 3E.C; GLUCOSE,POINT OF CARE 349 MG/DL (70-110)
[2023-01-05] MEDS: MetFORMIN HCL 500 MG TABLET PO SCH ×2 (06:54→16:30)
[2023-01-05] MEDS: INSULIN LISPRO 100 UNITS/ML SQ PRN ×4 (06:55→22:16)
[2023-01-05] MEDS: MULTIVITAMINS WITH MINERALS, THERAPEUTIC TABLET PO SCH (08:44)
[2023-01-05] MEDS: THIAMINE 100 MG TABLET PO SCH ×2 (08:44→16:31)
[2023-01-05] MEDS: BuPROPion HCL XL 150 MG ER TABLET PO SCH (08:44)
[2023-01-05] MEDS: GABAPENTIN 400 MG CAPSULE PO SCH ×4 (08:44→22:06)
[2023-01-05] MEDS: LISINOPRIL 10 MG TABLET PO SCH ×2 (08:44→16:31)
[2023-01-05] MEDS: FOLIC ACID 1 MG TABLET PO SCH (08:44)
[2023-01-05 09:39] VITALS: BP 148/89
[2023-01-05] MEDS: OMEPRAZOLE 20 MG CAPSULE PO SCH (10:04)
[2023-01-05 11:46] LABS: GLUCOMETER DEV NAME(LOC) 3E.C; GLUCOSE,POINT OF CARE 262 MG/DL (70-110)
[2023-01-05 16:30] VITALS: BP 134/88
[2023-01-05 18:12] LABS: GLUCOMETER DEV NAME(LOC) 3E.C; GLUCOSE,POINT OF CARE 337 MG/DL (70-110)
[2023-01-05] MEDS ORDERED: INSULIN GLARGINE,HUM.REC.ANLOG 100 UNITS/ML SQ SCH (21:00)
[2023-01-05 21:35] VITALS: BP 152/91
[2023-01-05 21:46] LABS: GLUCOMETER DEV NAME(LOC) 3E.C; GLUCOSE,POINT OF CARE 293 MG/DL (70-110)
[2023-01-05] MEDS: QUEtiapine FUMARATE 200 MG TABLET PO SCH (22:05)
[2023-01-05] MEDS: MIRTAZAPINE 30 MG TABLET PO SCH (22:06)
[2023-01-05] MEDS: INSULIN GLARGINE,HUM.REC.ANLOG 100 UNITS/ML SQ SCH (22:11)
[2023-01-05] MEDS: ZOLPIDEM TARTRATE 10 MG TABLET PO PRN (23:25)
[2023-01-06] MEDS: MAG HYDROX/AL HYDROX/SIMETH ES 30 ML SUSPENSION UDCUP PO PRN ×2 (00:55→14:49)
[2023-01-06 06:41] LABS: GLUCOMETER DEV NAME(LOC) 3E.C; GLUCOSE,POINT OF CARE 249 MG/DL (70-110)
[2023-01-06] MEDS: MetFORMIN HCL 500 MG TABLET PO SCH ×2 (07:08→16:51)
[2023-01-06] MEDS: INSULIN LISPRO 100 UNITS/ML SQ PRN ×4 (07:09→21:25)
[2023-01-06] MEDS: LISINOPRIL 10 MG TABLET PO SCH ×2 (09:00→16:52)
[2023-01-06] MEDS: OMEPRAZOLE 20 MG CAPSULE PO SCH (09:04)
[2023-01-06] MEDS: BuPROPion HCL XL 150 MG ER TABLET PO SCH (09:05)
[2023-01-06] MEDS: FOLIC ACID 1 MG TABLET PO SCH (09:06)
[2023-01-06] MEDS: THIAMINE 100 MG TABLET PO SCH ×2 (09:06→16:51)
[2023-01-06] MEDS: GABAPENTIN 400 MG CAPSULE PO SCH ×4 (09:06→21:15)
[2023-01-06] MEDS: MULTIVITAMINS WITH MINERALS, THERAPEUTIC TABLET PO SCH (09:06)
[2023-01-06 12:16] LABS: GLUCOMETER DEV NAME(LOC) 3E.C; GLUCOSE,POINT OF CARE 217 MG/DL (70-110)
[2023-01-06 16:41] LABS: GLUCOMETER DEV NAME(LOC) 3E.C; GLUCOSE,POINT OF CARE 317 MG/DL (70-110)
[2023-01-06 20:17] VITALS: BP 118/77
[2023-01-06 21:06] LABS: GLUCOMETER DEV NAME(LOC) 3E.C; GLUCOSE,POINT OF CARE 302 MG/DL (70-110)
[2023-01-06] MEDS: MIRTAZAPINE 30 MG TABLET PO SCH (21:15)
[2023-01-06] MEDS: QUEtiapine FUMARATE 200 MG TABLET PO SCH (21:15)
[2023-01-06] MEDS: INSULIN GLARGINE,HUM.REC.ANLOG 100 UNITS/ML SQ SCH (21:24)
[2023-01-07] MEDS: ZOLPIDEM TARTRATE 10 MG TABLET PO PRN (02:37)
[2023-01-07] MEDS: LORazepam 2 MG TABLET PO PRN (02:37)
[2023-01-07 05:41] LABS: GLUCOMETER DEV NAME(LOC) 3EX.2; GLUCOSE,POINT OF CARE 243 MG/DL (70-110)
[2023-01-07] MEDS: MetFORMIN HCL 500 MG TABLET PO SCH (06:57)
[2023-01-07] MEDS: INSULIN LISPRO 100 UNITS/ML SQ PRN ×2 (07:07→11:42)
[2023-01-07 08:56] VITALS: BP 111/74
[2023-01-07] MEDS ORDERED: PALIPERIDONE PALMITATE 156 MG/ML SYRINGE IM ONE (09:00)
[2023-01-07] MEDS: FOLIC ACID 1 MG TABLET PO SCH (09:24)
[2023-01-07] MEDS: BuPROPion HCL XL 150 MG ER TABLET PO SCH (09:25)
[2023-01-07] MEDS: MULTIVITAMINS WITH MINERALS, THERAPEUTIC TABLET PO SCH (09:25)
[2023-01-07] MEDS: OMEPRAZOLE 20 MG CAPSULE PO SCH (09:26)
[2023-01-07] MEDS: GABAPENTIN 400 MG CAPSULE PO SCH ×2 (09:26→12:00)
[2023-01-07] MEDS: LISINOPRIL 10 MG TABLET PO SCH (09:26)
[2023-01-07] MEDS: THIAMINE 100 MG TABLET PO SCH (09:26)
[2023-01-07] MEDS ORDERED: THIA100T80 PO (11:32)
[2023-01-07] MEDS ORDERED: GABA-1201 PO (11:32)
[2023-01-07] MEDS ORDERED: QUET200T30 PO (11:32)
[2023-01-07] MEDS ORDERED: BUPR-49 PO (11:32)
[2023-01-07] MEDS ORDERED: MIRT-93 PO (11:32)
[2023-01-07 11:46] LABS: GLUCOMETER DEV NAME(LOC) 3E.C; GLUCOSE,POINT OF CARE 300 MG/DL (70-110)
[2023-01-07] MEDS ORDERED: LISI-893 PO (12:35)
[2023-01-07] MEDS ORDERED: METF-1211 PO (12:35)
[2023-01-07] MEDS ORDERED: OMEP20 PO (12:35)
[2023-01-07] MEDS ORDERED: INSLAN SQ (12:35)
[2023-01-07] MEDS ORDERED: INSULIN GLARGINE,HUM.REC.ANLOG 100 UNITS/ML SQ SCH (21:00)
== END 2023-01-07 13:05 | disposition home or self-care (01) | DRG 750 ==
LOC: EMS 13:46 → UNDOADMIN 18:20 → 3EI 18:20 → 3EX 01-04 22:24
PROVIDERS: ADMIT Psychiatry & Neurology Psychiatry; ATTEND Psychiatry & Neurology Psychiatry
DX: F25.9 Schizoaffective disorder, unspecified (principal); R45.851 Suicidal ideations; E11.9 Type 2 diabetes mellitus without complications; E78.00 Pure hypercholesterolemia, unspecified; E66.9 Obesity, unspecified; D64.9 Anemia, unspecified; F12.90 Cannabis use, unspecified, uncomplicated; F17.200 Nicotine dependence, unspecified, uncomplicated; F31.9 Bipolar disorder, unspecified; F41.0 Panic disorder [episodic paroxysmal anxiety]; I10 Essential (primary) hypertension; Z20.822 Contact with and (suspected) exposure to COVID-19; K46.9 Unspecified abdominal hernia without obstruction or gangrene; J44.9 Chronic obstructive pulmonary disease, unspecified; E78.5 Hyperlipidemia, unspecified; Z55.9 Problems related to education and literacy, unspecified; Z59.9 Problem related to housing and economic circumstances, unspecified; Z63.9 Problem related to primary support group, unspecified; Z65.3 Problems related to other legal circumstances; Z91.51 Personal history of suicidal behavior; Z68.33 Body mass index [BMI] 33.0-33.9, adult; Z79.899 Other long term (current) drug therapy
CPT/HCPCS: 80053; 80061; 81001; 82962; 83036; 84439; 84443; 85025; 86592; 99285; G0378; J1815

== ENCOUNTER 2023-03-01 11:07 | Inpatient (IN) | payer MEDICAID ==
[~2023-03-01] VITALS: Ht 170.2 cm; Wt 90.0 kg
[~2023-03-01 11:07] MED LIST changes: +BUPR-49 PO; -GABA-1181 PO; +GABA-1201 PO; +MIRT-93 PO; +OMEP20 PO; +QUET200T30 PO; -QUET300T2 PO; -SERT-162 PO; +THIA100T80 PO; -TRAZ150T80 PO
[2023-03-01 14:16] LABS: BASOPHILS % (AUTO) 1.1 % (0.0-2.0); EOSINOPHILS % (AUTO) 2.5 % (1.0-6.0); HEMATOCRIT 33.5 % (41-53); HEMOGLOBIN 10.3 g/dL (13.5-17.5); LYMPHOCYTES # (AUTO) 1.8 K/uL (1.0-4.8); LYMPHOCYTES % (AUTO) 29.3 % (22.0-44.0); MEAN CORPUSCULAR HEMOGLOBIN 20.1 pg (26.0-34.0); MEAN CORPUSCULAR HGB CONC 30.6 G/dL (31.0-37.0); MEAN CORPUSCULAR VOLUME 66 fL (80-100); MONOCYTES # (AUTO) 0.4 K/uL (0.1-1.0); MONOCYTES % (AUTO) 6.8 % (2.0-9.0); NEUTROPHILS # (AUTO) 3.7 K/uL (1.8-7.7); NEUTROPHILS % (AUTO) 60.3 % (40.0-70.0); PLATELET COUNT (AUTO) 327 K/uL (150-450); RED CELL DISTRIBUTION WIDTH 21.9 % (11.5-14.5)
[2023-03-01 14:28] LABS: AMPHET/METH SCREEN,URINE NEGATIVE (NEGATIVE); BARBITURATE SCREEN, URINE NEGATIVE (NEGATIVE); BENZODIAZEPINES SCREEN,URINE NEGATIVE (NEGATIVE); CANNABINOID SCREEN,URINE NEGATIVE (NEGATIVE); COCAINE SCREEN,URINE NEGATIVE (NEGATIVE); METHADONE SCREEN, URINE NEGATIVE (NEGATIVE); OPIATE SCREEN,URINE NEGATIVE (NEGATIVE); PHENCYCLIDINE SCREEN,URINE NEGATIVE (NEGATIVE)
[2023-03-01 14:30] LABS: ALANINE AMINOTRANSFERASE 22 U/L (12-78); ALBUMIN 2.8 g/dL (3.4-5.0); ALKALINE PHOSPHATASE 164 U/L (46-116); ANION GAP 10 mmol/L (8-16); ASPARTATE AMINOTRANSFERASE 17 U/L (15-37); BILIRUBIN,TOTAL 0.2 mg/dL (0.1-1.0); CALCIUM, TOTAL 8.6 mg/dL (8.8-10.5); CARBON DIOXIDE 27 mmol/L (22-29); CHLORIDE 100 mmol/L (98-107); CREATININE 0.87 mg/dL (0.60-1.30); GLOMERULAR FILTR. RATE CALC > 60 mL/min (>60); POTASSIUM 4.4 mmol/L (3.5-5.1); SODIUM SERUM 137 mmol/L (136-145); TOTAL PROTEIN, SERUM 6.7 g/dL (6.4-8.2)
[2023-03-01] MEDS ORDERED: QUEtiapine FUMARATE 100 MG TABLET PO ONE (14:30)
[2023-03-01 14:40] LABS: GLUCOSE,RANDOM 459 mg/dL (70-110)
[2023-03-01] MEDS ORDERED: INSULIN REGULAR, HUMAN 100 UNITS/ML IVP ONE (14:45)
[2023-03-01] MEDS ORDERED: SODIUM CHLORIDE 0.9% 1,000 ML IV ONE (14:45)
[2023-03-01] MEDS ORDERED: LORazepam 2 MG/ML VIAL ONE (14:58)
[2023-03-01] MEDS ORDERED: HALOPERIDOL LACTATE 5 MG/ML VIAL ONE (14:58)
[2023-03-01] MEDS ORDERED: DiphenhydrAMINE HCL 50 MG/ML VIAL ONE (14:58)
[2023-03-01] MEDS ORDERED: HALOPERIDOL LACTATE 5 MG/ML VIAL IM ONE (15:00)
[2023-03-01] MEDS ORDERED: DiphenhydrAMINE HCL 50 MG/ML VIAL IM ONE (15:00)
[2023-03-01] MEDS ORDERED: LORazepam 2 MG/ML VIAL IM ONE (15:00)
[2023-03-01 16:20] LABS: COVID AG,FIA SOURCE NASOPHARYNGEAL
[2023-03-01 18:26] VITALS: BP 156/96
[2023-03-01] MEDS ORDERED: ACETAMINOPHEN 325 MG TABLET PO PRN (18:45)
[2023-03-01] MEDS ORDERED: IBUPROFEN 600 MG TABLET PO PRN (18:45)
[2023-03-01] MEDS ORDERED: DOCUSATE SODIUM 100 MG CAPSULE PO PRN (18:45)
[2023-03-01] MEDS ORDERED: BACITRACIN 28 GM OINTMENT TP PRN (18:45)
[2023-03-01] MEDS ORDERED: MAGNESIUM HYDROXIDE SUSPENSION 30 ML UDCUP PO PRN (18:45)
[2023-03-01] MEDS ORDERED: LOPERAMIDE HCL 2 MG CAPSULE PO PRN (18:45)
[2023-03-01] MEDS ORDERED: ALBUTEROL SULFATE HFA 90 MCG/PUFF 8 GM INHALER IH PRN (18:45)
[2023-03-01] MEDS ORDERED: PETROLATUM,WHITE 28 GM JELLY TP PRN (18:45)
[2023-03-01] MEDS ORDERED: CloNIDine HCL 0.1 MG TABLET PO PRN (18:45)
[2023-03-01] MEDS: LISINOPRIL 10 MG TABLET PO SCH (18:45)
[2023-03-01] MEDS ORDERED: DEXTROSE 50%-WATER 25 GM/50 ML SYRINGE IVP PRN (18:45)
[2023-03-01] MEDS: GABAPENTIN 400 MG CAPSULE PO SCH (21:00)
[2023-03-01 21:06] LABS: GLUCOMETER DEV NAME(LOC) 3EX.2; GLUCOSE,POINT OF CARE 147 MG/DL (70-110)
[2023-03-01] MEDS: INSULIN GLARGINE,HUM.REC.ANLOG 100 UNITS/ML SQ SCH (21:15)
[2023-03-01] MEDS: INSULIN LISPRO 100 UNITS/ML SQ PRN (21:16)
[2023-03-02] MEDS: MetFORMIN HCL 500 MG TABLET PO SCH ×2 (07:03→17:50)
[2023-03-02] MEDS: LORazepam 2 MG TABLET PO PRN (09:24)
[2023-03-02] MEDS: HALOPERIDOL 5 MG TABLET PO PRN (09:24)
[2023-03-02] MEDS: LISINOPRIL 10 MG TABLET PO SCH ×2 (09:24→17:50)
[2023-03-02] MEDS: GABAPENTIN 400 MG CAPSULE PO SCH ×4 (09:24→21:07)
[2023-03-02] MEDS ORDERED: HALOPERIDOL LACTATE 5 MG/ML VIAL ONE (13:27)
[2023-03-02] MEDS ORDERED: DiphenhydrAMINE HCL 50 MG/ML VIAL ONE (13:27)
[2023-03-02] MEDS ORDERED: LORazepam 2 MG/ML VIAL ONE (13:27)
[2023-03-02] MEDS ORDERED: DiphenhydrAMINE HCL 50 MG/ML VIAL IM ONE (13:30)
[2023-03-02] MEDS ORDERED: LORazepam 2 MG/ML VIAL IM ONE (13:30)
[2023-03-02] MEDS ORDERED: HALOPERIDOL LACTATE 5 MG/ML VIAL IM ONE (13:30)
[2023-03-02 13:41] LABS: GLUCOMETER DEV NAME(LOC) 3EX.2; GLUCOSE,POINT OF CARE 340 MG/DL (70-110)
[2023-03-02] MEDS: INSULIN LISPRO 100 UNITS/ML SQ PRN ×2 (17:38→21:10)
[2023-03-02 17:51] LABS: GLUCOMETER DEV NAME(LOC) 3E.C; GLUCOSE,POINT OF CARE 170 MG/DL (70-110)
[2023-03-02 20:31] LABS: GLUCOMETER DEV NAME(LOC) 3EX.2; GLUCOSE,POINT OF CARE 190 MG/DL (70-110)
[2023-03-02] MEDS: INSULIN GLARGINE,HUM.REC.ANLOG 100 UNITS/ML SQ SCH (21:10)
[2023-03-03] MEDS: HALOPERIDOL 5 MG TABLET PO PRN ×3 (04:51→16:31)
[2023-03-03] MEDS: LORazepam 2 MG TABLET PO PRN ×2 (04:51→09:37)
[2023-03-03 05:00] LABS: GLUCOMETER DEV NAME(LOC) 3EX.2; GLUCOSE,POINT OF CARE 63 MG/DL (70-110)
[2023-03-03 05:16] LABS: GLUCOMETER DEV NAME(LOC) 3EX.2; GLUCOSE,POINT OF CARE 84 MG/DL (70-110)
[2023-03-03] MEDS: INSULIN LISPRO 100 UNITS/ML SQ PRN ×3 (06:38→16:37)
[2023-03-03] MEDS: MetFORMIN HCL 500 MG TABLET PO SCH ×2 (07:09→16:31)
[2023-03-03] MEDS: LISINOPRIL 10 MG TABLET PO SCH ×2 (08:36→16:31)
[2023-03-03] MEDS: GABAPENTIN 400 MG CAPSULE PO SCH ×4 (08:37→21:00)
[2023-03-03 10:41] LABS: GLUCOMETER DEV NAME(LOC) 3EX.2; GLUCOSE,POINT OF CARE 263 MG/DL (70-110)
[2023-03-03] MEDS: ONDANSETRON HCL 4 MG TABLET PO PRN (14:49)
[2023-03-03 16:41] LABS: GLUCOMETER DEV NAME(LOC) 3EX.2; GLUCOSE,POINT OF CARE 142 MG/DL (70-110)
[2023-03-03] MEDS: INSULIN GLARGINE,HUM.REC.ANLOG 100 UNITS/ML SQ SCH (21:00)
[2023-03-04] MEDS: MetFORMIN HCL 500 MG TABLET PO SCH ×2 (07:03→17:42)
[2023-03-04] MEDS: HALOPERIDOL 5 MG TABLET PO PRN ×2 (07:32→16:29)
[2023-03-04] MEDS: GABAPENTIN 400 MG CAPSULE PO SCH ×4 (08:15→21:00)
[2023-03-04] MEDS: LISINOPRIL 10 MG TABLET PO SCH ×2 (08:15→16:31)
[2023-03-04] MEDS: LORazepam 2 MG TABLET PO PRN (08:24)
[2023-03-04 09:34] VITALS: BP 158/99
[2023-03-04] MEDS: INSULIN LISPRO 100 UNITS/ML SQ PRN ×3 (11:05→21:04)
[2023-03-04 11:16] LABS: GLUCOMETER DEV NAME(LOC) 3EX.2; GLUCOSE,POINT OF CARE 279 MG/DL (70-110)
[2023-03-04 16:41] LABS: GLUCOMETER DEV NAME(LOC) 3EX.2; GLUCOSE,POINT OF CARE 288 MG/DL (70-110)
[2023-03-04] MEDS: QUEtiapine FUMARATE 200 MG TABLET PO SCH (21:00)
[2023-03-04] MEDS: INSULIN GLARGINE,HUM.REC.ANLOG 100 UNITS/ML SQ SCH (21:03)
[2023-03-04 21:06] LABS: GLUCOMETER DEV NAME(LOC) 3EX.2; GLUCOSE,POINT OF CARE 314 MG/DL (70-110)
[2023-03-05 06:17] LABS: GLUCOMETER DEV NAME(LOC) 3EX.2; GLUCOSE,POINT OF CARE 158 MG/DL (70-110)
[2023-03-05] MEDS: MetFORMIN HCL 500 MG TABLET PO SCH ×2 (06:54→17:11)
[2023-03-05] MEDS: INSULIN LISPRO 100 UNITS/ML SQ PRN ×4 (06:55→21:12)
[2023-03-05] MEDS: HALOPERIDOL 5 MG TABLET PO PRN (07:56)
[2023-03-05] MEDS: GABAPENTIN 400 MG CAPSULE PO SCH ×4 (07:56→21:09)
[2023-03-05] MEDS: LISINOPRIL 10 MG TABLET PO SCH ×2 (07:56→16:33)
[2023-03-05 09:23] VITALS: BP 160/95
[2023-03-05 12:16] LABS: GLUCOMETER DEV NAME(LOC) 3EX.2; GLUCOSE,POINT OF CARE 191 MG/DL (70-110)
[2023-03-05 16:51] LABS: GLUCOMETER DEV NAME(LOC) 3EX.2; GLUCOSE,POINT OF CARE 201 MG/DL (70-110)
[2023-03-05 20:51] LABS: GLUCOMETER DEV NAME(LOC) 3EX.2; GLUCOSE,POINT OF CARE 305 MG/DL (70-110)
[2023-03-05] MEDS: QUEtiapine FUMARATE 200 MG TABLET PO SCH (21:09)
[2023-03-05] MEDS: INSULIN GLARGINE,HUM.REC.ANLOG 100 UNITS/ML SQ SCH (21:11)
[2023-03-06 06:46] LABS: GLUCOMETER DEV NAME(LOC) 3EX.2; GLUCOSE,POINT OF CARE 186 MG/DL (70-110)
[2023-03-06] MEDS: MetFORMIN HCL 500 MG TABLET PO SCH ×2 (06:54→17:00)
[2023-03-06] MEDS: INSULIN LISPRO 100 UNITS/ML SQ PRN ×3 (06:56→21:26)
[2023-03-06 08:16] VITALS: BP 132/79
[2023-03-06] MEDS: LISINOPRIL 10 MG TABLET PO SCH ×2 (09:00→17:00)
[2023-03-06] MEDS: GABAPENTIN 400 MG CAPSULE PO SCH ×4 (09:00→20:43)
[2023-03-06 16:56] LABS: GLUCOMETER DEV NAME(LOC) 3EX.2; GLUCOSE,POINT OF CARE 244 MG/DL (70-110)
[2023-03-06 20:16] LABS: GLUCOMETER DEV NAME(LOC) 3EX.2; GLUCOSE,POINT OF CARE 264 MG/DL (70-110)
[2023-03-06] MEDS: ONDANSETRON HCL 4 MG TABLET PO PRN (20:42)
[2023-03-06] MEDS: QUEtiapine FUMARATE 200 MG TABLET PO SCH (20:43)
[2023-03-06] MEDS: INSULIN GLARGINE,HUM.REC.ANLOG 100 UNITS/ML SQ SCH (21:25)
[2023-03-06 22:10] VITALS: BP 130/80
[2023-03-07] MEDS: MAG HYDROX/AL HYDROX/SIMETH ES 30 ML SUSPENSION UDCUP PO PRN (00:32)
[2023-03-07] MEDS: MetFORMIN HCL 500 MG TABLET PO SCH ×2 (06:59→16:49)
[2023-03-07] MEDS: LISINOPRIL 10 MG TABLET PO SCH ×2 (08:44→17:13)
[2023-03-07] MEDS: GABAPENTIN 400 MG CAPSULE PO SCH ×4 (08:44→21:00)
[2023-03-07] MEDS: INSULIN LISPRO 100 UNITS/ML SQ PRN ×3 (11:57→21:14)
[2023-03-07 17:13] VITALS: BP 111/80
[2023-03-07 17:36] LABS: GLUCOMETER DEV NAME(LOC) 3EX.2; GLUCOSE,POINT OF CARE 203 MG/DL (70-110)
[2023-03-07 17:36] LABS: GLUCOMETER DEV NAME(LOC) 3EX.2; GLUCOSE,POINT OF CARE 275 MG/DL (70-110)
[2023-03-07 20:52] LABS: GLUCOMETER DEV NAME(LOC) 3EX.2; GLUCOSE,POINT OF CARE 201 MG/DL (70-110)
[2023-03-07] MEDS: QUEtiapine FUMARATE 200 MG TABLET PO SCH (21:00)
[2023-03-07] MEDS: INSULIN GLARGINE,HUM.REC.ANLOG 100 UNITS/ML SQ SCH (21:12)
[2023-03-07] MEDS: ZOLPIDEM TARTRATE 10 MG TABLET PO PRN (22:42)
[2023-03-08 06:41] LABS: GLUCOMETER DEV NAME(LOC) 3EX.2; GLUCOSE,POINT OF CARE 177 MG/DL (70-110)
[2023-03-08] MEDS: MetFORMIN HCL 500 MG TABLET PO SCH ×2 (06:43→16:35)
[2023-03-08] MEDS: INSULIN LISPRO 100 UNITS/ML SQ PRN ×3 (06:55→20:59)
[2023-03-08] MEDS: GABAPENTIN 400 MG CAPSULE PO SCH ×4 (08:35→20:54)
[2023-03-08] MEDS: LISINOPRIL 10 MG TABLET PO SCH ×2 (08:35→16:35)
[2023-03-08 09:27] VITALS: BP 116/74
[2023-03-08 12:07] LABS: GLUCOMETER DEV NAME(LOC) 3EX.2; GLUCOSE,POINT OF CARE 181 MG/DL (70-110)
[2023-03-08 16:15] VITALS: BP 116/72
[2023-03-08 16:36] LABS: GLUCOMETER DEV NAME(LOC) 3EX.2; GLUCOSE,POINT OF CARE 219 MG/DL (70-110)
[2023-03-08 20:21] LABS: GLUCOMETER DEV NAME(LOC) 3EX.2; GLUCOSE,POINT OF CARE 169 MG/DL (70-110)
[2023-03-08] MEDS: QUEtiapine FUMARATE 200 MG TABLET PO SCH (20:54)
[2023-03-08] MEDS: INSULIN GLARGINE,HUM.REC.ANLOG 100 UNITS/ML SQ SCH (20:58)
[2023-03-09 06:31] LABS: GLUCOMETER DEV NAME(LOC) 3EX.2; GLUCOSE,POINT OF CARE 122 MG/DL (70-110)
[2023-03-09] MEDS: MetFORMIN HCL 500 MG TABLET PO SCH ×2 (06:48→16:57)
[2023-03-09] MEDS: INSULIN LISPRO 100 UNITS/ML SQ PRN ×3 (06:49→21:08)
[2023-03-09] MEDS: GABAPENTIN 400 MG CAPSULE PO SCH ×4 (09:37→20:40)
[2023-03-09] MEDS: LISINOPRIL 10 MG TABLET PO SCH ×2 (09:38→16:57)
[2023-03-09 11:16] LABS: GLUCOMETER DEV NAME(LOC) 3EX.2; GLUCOSE,POINT OF CARE 132 MG/DL (70-110)
[2023-03-09 17:16] LABS: GLUCOMETER DEV NAME(LOC) 3EX.2; GLUCOSE,POINT OF CARE 118 MG/DL (70-110)
[2023-03-09] MEDS: MAG HYDROX/AL HYDROX/SIMETH ES 30 ML SUSPENSION UDCUP PO PRN (20:08)
[2023-03-09 20:36] LABS: GLUCOMETER DEV NAME(LOC) 3EX.2; GLUCOSE,POINT OF CARE 226 MG/DL (70-110)
[2023-03-09] MEDS: QUEtiapine FUMARATE 200 MG TABLET PO SCH (20:40)
[2023-03-09] MEDS: INSULIN GLARGINE,HUM.REC.ANLOG 100 UNITS/ML SQ SCH (21:08)
[2023-03-10] MEDS: INSULIN LISPRO 100 UNITS/ML SQ PRN ×3 (06:00→21:05)
[2023-03-10 06:11] LABS: GLUCOMETER DEV NAME(LOC) 3EX.2; GLUCOSE,POINT OF CARE 99 MG/DL (70-110)
[2023-03-10] MEDS: MetFORMIN HCL 500 MG TABLET PO SCH ×2 (06:23→17:22)
[2023-03-10 08:22] VITALS: BP 143/78
[2023-03-10] MEDS: LISINOPRIL 10 MG TABLET PO SCH ×2 (09:43→17:21)
[2023-03-10] MEDS: GABAPENTIN 400 MG CAPSULE PO SCH ×4 (09:43→20:45)
[2023-03-10 11:26] LABS: GLUCOMETER DEV NAME(LOC) 3EX.2; GLUCOSE,POINT OF CARE 96 MG/DL (70-110)
[2023-03-10 15:41] LABS: GLUCOMETER DEV NAME(LOC) 3EX.2; GLUCOSE,POINT OF CARE 191 MG/DL (70-110)
[2023-03-10 20:45] VITALS: BP 116/81
[2023-03-10] MEDS: QUEtiapine FUMARATE 200 MG TABLET PO SCH (20:45)
[2023-03-10] MEDS: INSULIN GLARGINE,HUM.REC.ANLOG 100 UNITS/ML SQ SCH (20:45)
[2023-03-10 20:46] LABS: GLUCOMETER DEV NAME(LOC) 3EX.2; GLUCOSE,POINT OF CARE 230 MG/DL (70-110)
[2023-03-10] MEDS: MAG HYDROX/AL HYDROX/SIMETH ES 30 ML SUSPENSION UDCUP PO PRN (21:14)
[2023-03-10] MEDS: LORazepam 2 MG TABLET PO PRN (21:14)
[2023-03-11 05:46] LABS: GLUCOMETER DEV NAME(LOC) 3EX.2; GLUCOSE,POINT OF CARE 100 MG/DL (70-110)
[2023-03-11] MEDS: MetFORMIN HCL 500 MG TABLET PO SCH ×2 (06:39→16:28)
[2023-03-11] MEDS: GABAPENTIN 400 MG CAPSULE PO SCH ×4 (08:20→20:13)
[2023-03-11] MEDS: LISINOPRIL 10 MG TABLET PO SCH ×2 (08:20→16:28)
[2023-03-11 08:49] VITALS: BP 154/85
[2023-03-11 11:36] LABS: GLUCOMETER DEV NAME(LOC) 3EX.2; GLUCOSE,POINT OF CARE 237 MG/DL (70-110)
[2023-03-11] MEDS: INSULIN LISPRO 100 UNITS/ML SQ PRN ×3 (11:55→20:52)
[2023-03-11] MEDS: HALOPERIDOL 5 MG TABLET PO PRN (16:26)
[2023-03-11 16:27] VITALS: BP 114/65
[2023-03-11 16:56] LABS: GLUCOMETER DEV NAME(LOC) 3EX.2; GLUCOSE,POINT OF CARE 176 MG/DL (70-110)
[2023-03-11] MEDS: QUEtiapine FUMARATE 200 MG TABLET PO SCH (20:13)
[2023-03-11] MEDS: OMEPRAZOLE 20 MG CAPSULE PO PRN (20:20)
[2023-03-11 20:30] LABS: GLUCOMETER DEV NAME(LOC) 3EX.2; GLUCOSE,POINT OF CARE 176 MG/DL (70-110)
[2023-03-11] MEDS: INSULIN GLARGINE,HUM.REC.ANLOG 100 UNITS/ML SQ SCH (20:50)
[2023-03-12 06:21] LABS: GLUCOMETER DEV NAME(LOC) 3EX.2; GLUCOSE,POINT OF CARE 67 MG/DL (70-110)
[2023-03-12 06:51] LABS: GLUCOMETER DEV NAME(LOC) 3EX.2; GLUCOSE,POINT OF CARE 100 MG/DL (70-110)
[2023-03-12] MEDS: MetFORMIN HCL 500 MG TABLET PO SCH ×2 (07:41→17:02)
[2023-03-12] MEDS: LISINOPRIL 10 MG TABLET PO SCH ×2 (08:08→17:02)
[2023-03-12] MEDS: GABAPENTIN 400 MG CAPSULE PO SCH ×4 (08:08→20:15)
[2023-03-12 08:14] VITALS: BP 176/85
[2023-03-12 12:12] LABS: GLUCOMETER DEV NAME(LOC) 3EX.2; GLUCOSE,POINT OF CARE 125 MG/DL (70-110)
[2023-03-12 16:25] LABS: GLUCOMETER DEV NAME(LOC) 3EX.2; GLUCOSE,POINT OF CARE 166 MG/DL (70-110)
[2023-03-12 16:55] VITALS: BP 123/73
[2023-03-12] MEDS: INSULIN LISPRO 100 UNITS/ML SQ PRN ×2 (17:24→21:05)
[2023-03-12] MEDS: QUEtiapine FUMARATE 200 MG TABLET PO SCH (20:15)
[2023-03-12 21:01] LABS: GLUCOMETER DEV NAME(LOC) 3EX.2; GLUCOSE,POINT OF CARE 204 MG/DL (70-110)
[2023-03-12] MEDS: INSULIN GLARGINE,HUM.REC.ANLOG 100 UNITS/ML SQ SCH (21:03)
[2023-03-13 06:26] LABS: GLUCOMETER DEV NAME(LOC) 3EX.2; GLUCOSE,POINT OF CARE 78 MG/DL (70-110)
[2023-03-13] MEDS: INSULIN LISPRO 100 UNITS/ML SQ PRN ×4 (06:36→21:05)
[2023-03-13] MEDS: MetFORMIN HCL 500 MG TABLET PO SCH ×2 (07:03→16:36)
[2023-03-13] MEDS: GABAPENTIN 400 MG CAPSULE PO SCH ×4 (08:09→20:28)
[2023-03-13] MEDS: LISINOPRIL 10 MG TABLET PO SCH ×2 (08:09→16:16)
[2023-03-13 10:09] VITALS: BP 109/71
[2023-03-13 11:41] LABS: GLUCOMETER DEV NAME(LOC) 3EX.2; GLUCOSE,POINT OF CARE 169 MG/DL (70-110)
[2023-03-13 17:16] LABS: GLUCOMETER DEV NAME(LOC) 3EX.2; GLUCOSE,POINT OF CARE 286 MG/DL (70-110)
[2023-03-13] MEDS: QUEtiapine FUMARATE 200 MG TABLET PO SCH (20:28)
[2023-03-13] MEDS: INSULIN GLARGINE,HUM.REC.ANLOG 100 UNITS/ML SQ SCH (20:32)
[2023-03-13 21:30] LABS: GLUCOMETER DEV NAME(LOC) 3EX.2; GLUCOSE,POINT OF CARE 206 MG/DL (70-110)
[2023-03-13] MEDS: OMEPRAZOLE 20 MG CAPSULE PO PRN (23:30)
[2023-03-14] MEDS: MetFORMIN HCL 500 MG TABLET PO SCH ×2 (06:38→16:44)
[2023-03-14] MEDS: INSULIN LISPRO 100 UNITS/ML SQ PRN ×4 (06:39→20:46)
[2023-03-14 07:16] LABS: GLUCOMETER DEV NAME(LOC) 3EX.2; GLUCOSE,POINT OF CARE 84 MG/DL (70-110)
[2023-03-14 08:42] VITALS: BP 120/90
[2023-03-14] MEDS: GABAPENTIN 400 MG CAPSULE PO SCH ×4 (08:50→20:41)
[2023-03-14] MEDS: LISINOPRIL 10 MG TABLET PO SCH ×2 (08:50→16:44)
[2023-03-14 11:41] LABS: GLUCOMETER DEV NAME(LOC) 3EX.2; GLUCOSE,POINT OF CARE 176 MG/DL (70-110)
[2023-03-14 16:43] VITALS: BP 134/88
[2023-03-14 16:46] LABS: GLUCOMETER DEV NAME(LOC) 3EX.2; GLUCOSE,POINT OF CARE 228 MG/DL (70-110)
[2023-03-14] MEDS: HALOPERIDOL 5 MG TABLET PO PRN (16:54)
[2023-03-14] MEDS: QUEtiapine FUMARATE 200 MG TABLET PO SCH (20:41)
[2023-03-14] MEDS: RisperiDONE 2 MG TABLET PO SCH (20:41)
[2023-03-14] MEDS: INSULIN GLARGINE,HUM.REC.ANLOG 100 UNITS/ML SQ SCH (20:45)
[2023-03-14] MEDS: ONDANSETRON HCL 4 MG TABLET PO PRN (21:07)
[2023-03-14 21:31] LABS: GLUCOMETER DEV NAME(LOC) 3EX.2; GLUCOSE,POINT OF CARE 218 MG/DL (70-110)
[2023-03-14] MEDS: OMEPRAZOLE 20 MG CAPSULE PO PRN (23:43)
[2023-03-15] MEDS: MetFORMIN HCL 500 MG TABLET PO SCH ×2 (06:44→16:33)
[2023-03-15] MEDS: INSULIN LISPRO 100 UNITS/ML SQ PRN ×4 (06:45→21:13)
[2023-03-15 07:16] LABS: GLUCOMETER DEV NAME(LOC) 3EX.2; GLUCOSE,POINT OF CARE 74 MG/DL (70-110)
[2023-03-15] MEDS: GABAPENTIN 400 MG CAPSULE PO SCH ×4 (08:23→21:05)
[2023-03-15] MEDS: RisperiDONE 2 MG TABLET PO SCH ×2 (08:23→21:05)
[2023-03-15] MEDS: LISINOPRIL 10 MG TABLET PO SCH ×2 (08:23→16:33)
[2023-03-15 08:24] VITALS: BP 143/99
[2023-03-15 12:22] LABS: GLUCOMETER DEV NAME(LOC) 3EX.2; GLUCOSE,POINT OF CARE 167 MG/DL (70-110)
[2023-03-15] MEDS: MAG HYDROX/AL HYDROX/SIMETH ES 30 ML SUSPENSION UDCUP PO PRN (13:54)
[2023-03-15 16:46] LABS: GLUCOMETER DEV NAME(LOC) 3EX.2; GLUCOSE,POINT OF CARE 180 MG/DL (70-110)
[2023-03-15] MEDS: LORazepam 2 MG TABLET PO PRN (19:45)
[2023-03-15] MEDS: HALOPERIDOL 5 MG TABLET PO PRN (19:45)
[2023-03-15 19:56] LABS: GLUCOMETER DEV NAME(LOC) 3EX.2; GLUCOSE,POINT OF CARE 215 MG/DL (70-110)
[2023-03-15 20:47] VITALS: BP 139/97
[2023-03-15] MEDS: INSULIN GLARGINE,HUM.REC.ANLOG 100 UNITS/ML SQ SCH (20:59)
[2023-03-15] MEDS: QUEtiapine FUMARATE 200 MG TABLET PO SCH (21:05)
[2023-03-15] MEDS: ZOLPIDEM TARTRATE 10 MG TABLET PO PRN (22:01)
[2023-03-16 05:46] LABS: GLUCOMETER DEV NAME(LOC) 3EX.2; GLUCOSE,POINT OF CARE 67 MG/DL (70-110)
[2023-03-16] MEDS: MetFORMIN HCL 500 MG TABLET PO SCH (06:34)
[2023-03-16] MEDS: GABAPENTIN 400 MG CAPSULE PO SCH ×2 (08:29→12:02)
[2023-03-16] MEDS: RisperiDONE 2 MG TABLET PO SCH (08:29)
[2023-03-16] MEDS: LISINOPRIL 10 MG TABLET PO SCH (08:30)
[2023-03-16 08:44] VITALS: BP 118/75
[2023-03-16 11:31] LABS: GLUCOMETER DEV NAME(LOC) 3EX.2; GLUCOSE,POINT OF CARE 118 MG/DL (70-110)
[2023-03-16] MEDS ORDERED: QUET400T5 PO (13:41)
[2023-03-16] MEDS ORDERED: RISP2TAB76 PO (13:41)
== END 2023-03-16 18:12 | disposition home or self-care (01) | DRG 750 ==
LOC: EMS 11:24 → 3EC 17:11
PROVIDERS: ADMIT Psychiatry & Neurology Psychiatry; ATTEND Psychiatry & Neurology Psychiatry
DX: F25.9 Schizoaffective disorder, unspecified (principal); R45.851 Suicidal ideations; E11.65 Type 2 diabetes mellitus with hyperglycemia; Z20.822 Contact with and (suspected) exposure to COVID-19; E78.5 Hyperlipidemia, unspecified; G62.9 Polyneuropathy, unspecified; I10 Essential (primary) hypertension; F12.90 Cannabis use, unspecified, uncomplicated; J44.9 Chronic obstructive pulmonary disease, unspecified; Z79.4 Long term (current) use of insulin; Z79.899 Other long term (current) drug therapy; Z72.0 Tobacco use; Z71.6 Tobacco abuse counseling
CPT/HCPCS: 80053; 80307; 82962; 85025; 99291; G0480; J1200; J1630; J1815; J2060; J7030; Q0162

== ENCOUNTER 2024-03-06 16:05 | Inpatient (IN) | payer MEDICAID ==
[~2024-03-06] VITALS: Ht 167.6 cm; Wt 90.3 kg
[~2024-03-06 16:05] MED LIST changes: -BUPR-49 PO; -INSLAN SQ; -MIRT-93 PO; -OMEP20 PO; +RISP2TAB76 PO; -THIA100T80 PO
[2024-03-06] MEDS ORDERED: PNEUMOCOCCAL VACCINE POLYVALENT 0.5 ML SYRINGE [PPSV23] IM. ONE (20:30)
[2024-03-07 04:53] VITALS: BP 129/68; PULSE 92; RESP 16; TEMP 98.1; O2SAT 95
[2024-03-07] MEDS ORDERED: MAGNESIUM HYDROXIDE SUSPENSION 30 ML UDCUP PO PRN (05:45)
[2024-03-07] MEDS ORDERED: LOPERAMIDE HCL 2 MG CAPSULE PO PRN (05:45)
[2024-03-07] MEDS ORDERED: GLUCAGON,HUMAN RECOMBINANT 1 MG VIAL IM PRN (05:45)
[2024-03-07] MEDS ORDERED: PETROLATUM,WHITE 28 GM JELLY TP PRN (05:45)
[2024-03-07] MEDS ORDERED: ACETAMINOPHEN 325 MG TABLET PO PRN (05:45)
[2024-03-07] MEDS ORDERED: CloNIDine HCL 0.1 MG TABLET PO PRN (05:45)
[2024-03-07] MEDS ORDERED: ONDANSETRON HCL 4 MG TABLET PO PRN (05:45)
[2024-03-07] MEDS ORDERED: BENZOCAINE/MENTHOL LOZENGE PO PRN (05:45)
[2024-03-07] MEDS ORDERED: DOCUSATE SODIUM 100 MG CAPSULE PO PRN (05:45)
[2024-03-07] MEDS ORDERED: ALBUTEROL SULFATE HFA 90 MCG/PUFF 8 GM INHALER IH PRN (05:45)
[2024-03-07] MEDS ORDERED: OMEPRAZOLE 20 MG CAPSULE PO PRN (05:45)
[2024-03-07] MEDS ORDERED: MAG HYDROX/ALUMINUM HYD/SIMETH ES 30 ML SUSPENSION UDCUP PO PRN (05:45)
[2024-03-07] MEDS ORDERED: BACITRACIN 28 GM OINTMENT TP PRN (05:45)
[2024-03-07] MEDS ORDERED: IBUPROFEN 600 MG TABLET PO PRN (05:45)
[2024-03-07 06:35] LABS: GLUCOMETER DEV NAME(LOC) BV2S.; GLUCOSE,POINT OF CARE 270 MG/DL (70-110)
[2024-03-07] MEDS: MetFORMIN HCL 500 MG TABLET PO SCH (06:40)
[2024-03-07] MEDS: INSULIN LISPRO 100 UNITS/ML SQ PRN (06:41)
[2024-03-07 08:08] VITALS: BP 133/62; PULSE 94; RESP 18; TEMP 96.8; O2SAT 97
[2024-03-07] MEDS: LISINOPRIL 10 MG TABLET PO SCH (08:25)
[2024-03-07 17:00] LABS: GLUCOMETER DEV NAME(LOC) BV3S.; GLUCOSE,POINT OF CARE 276 MG/DL (70-110)
[2024-03-07 20:37] VITALS: BP 146/86; PULSE 89; TEMP 97.8; O2SAT 96
[2024-03-07 23:56] LABS: GLUCOMETER DEV NAME(LOC) BV3S.; GLUCOSE,POINT OF CARE 310 MG/DL (70-110)
[2024-03-08 06:35] LABS: GLUCOMETER DEV NAME(LOC) BV3N.; GLUCOSE,POINT OF CARE 340 MG/DL (70-110)
[2024-03-08 08:51] VITALS: RESP 18
[2024-03-08] MEDS: LORazepam 2 MG TABLET PO PRN (12:36)
[2024-03-08] MEDS: HALOPERIDOL 5 MG TABLET PO PRN (12:36)
[2024-03-08 16:00] VITALS: BP 134/85; PULSE 81; RESP 18; TEMP 97.8
[2024-03-08] MEDS: DIVALPROEX SODIUM 500 MG DR TABLET PO SCH (16:16)
[2024-03-08] MEDS: RisperiDONE 3 MG TABLET PO SCH (16:16)
[2024-03-08] MEDS: LITHIUM CARBONATE 300 MG CAPSULE PO SCH (16:17)
[2024-03-08 16:31] LABS: GLUCOMETER DEV NAME(LOC) BV3N.; GLUCOSE,POINT OF CARE 361 MG/DL (70-110)
[2024-03-08 20:30] VITALS: BP 138/74; PULSE 86; RESP 18; TEMP 97.9
[2024-03-08 20:35] LABS: GLUCOMETER DEV NAME(LOC) BV3N.; GLUCOSE,POINT OF CARE 233 MG/DL (70-110)
[2024-03-09 07:15] LABS: GLUCOMETER DEV NAME(LOC) BV3N.; GLUCOSE,POINT OF CARE 199 MG/DL (70-110)
[2024-03-09 08:16] VITALS: BP 132/78; PULSE 85; RESP 16; TEMP 98
[2024-03-09 11:36] LABS: GLUCOMETER DEV NAME(LOC) BV3N.; GLUCOSE,POINT OF CARE 240 MG/DL (70-110)
[2024-03-09] MEDS ORDERED: ONDANSETRON HCL 4 MG/2 ML VIAL IM PRN (12:45)
[2024-03-09] MEDS: ONDANSETRON HCL 4 MG/2 ML VIAL IM PRN (13:27)
[2024-03-09] MEDS: ZOLPIDEM TARTRATE 10 MG TABLET PO PRN (20:55)
[2024-03-09 21:10] VITALS: BP 120/70; PULSE 97; RESP 18; TEMP 98
[2024-03-09 21:55] LABS: GLUCOMETER DEV NAME(LOC) BV3N.; GLUCOSE,POINT OF CARE 224 MG/DL (70-110)
[2024-03-10 10:14] VITALS: RESP 16
[2024-03-10 19:36] LABS: GLUCOMETER DEV NAME(LOC) BV3N.; GLUCOSE,POINT OF CARE 294 MG/DL (70-110)
[2024-03-10] MEDS: TraZODone HCL 100 MG TABLET PO SCH (21:00)
[2024-03-10] MEDS: QUEtiapine FUMARATE 300 MG TABLET PO SCH (21:00)
[2024-03-10 21:36] VITALS: RESP 16
[2024-03-10 22:25] VITALS: RESP 16
[2024-03-11 08:48] VITALS: RESP 18
[2024-03-11 17:06] LABS: GLUCOMETER DEV NAME(LOC) BV3N.; GLUCOSE,POINT OF CARE 228 MG/DL (70-110)
[2024-03-11 20:44] VITALS: BP 137/86; PULSE 97; TEMP 97.7; O2SAT 100
[2024-03-12 08:21] VITALS: RESP 18
[2024-03-12 16:20] VITALS: BP 136/87; PULSE 88; RESP 18; TEMP 97.6
[2024-03-12 20:39] VITALS: BP 113/55; PULSE 90; TEMP 97.7; O2SAT 100
[2024-03-13 08:43] VITALS: RESP 18
[2024-03-13] MEDS ORDERED: LITH300C3 PO (09:44)
[2024-03-13] MEDS ORDERED: TRAZ-257 PO (09:44)
[2024-03-13] MEDS ORDERED: RISP3TAB35 PO (09:44)
[2024-03-13] MEDS ORDERED: DIVA-112 PO (09:44)
[2024-03-13] MEDS ORDERED: QUET300T19 PO (09:44)
== END 2024-03-13 11:00 | disposition home or self-care (01) | DRG 750 ==
LOC: B2S 19:46 → B3A 03-07 13:23
PROVIDERS: ADMIT Psychiatry & Neurology Psychiatry; ATTEND Psychiatry & Neurology Psychiatry
DX: F25.9 Schizoaffective disorder, unspecified (principal); E11.40 Type 2 diabetes mellitus with diabetic neuropathy, unspecified; E11.65 Type 2 diabetes mellitus with hyperglycemia; F10.10 Alcohol abuse, uncomplicated; I10 Essential (primary) hypertension; J44.9 Chronic obstructive pulmonary disease, unspecified; F19.10 Other psychoactive substance abuse, uncomplicated
CPT/HCPCS: 82962; J2405

== ENCOUNTER 2024-03-06 19:25 | Emergency (ER) | payer MEDICAID ==
[~2024-03-06] VITALS: Ht 177.8 cm; Wt 90.9 kg
[2024-03-06 20:17] VITALS: TEMP 98.4
[2024-03-06 22:04] LABS: COVID AG,FIA SOURCE NASAL SWAB
[2024-03-06 22:09] LABS: BASOPHILS % (AUTO) 1.2 % (0.0-2.0); EOSINOPHILS % (AUTO) 2.8 % (1.0-6.0); HEMATOCRIT 31.3 % (41-53); HEMOGLOBIN 9.6 g/dL (13.5-17.5); LYMPHOCYTES % (AUTO) 33.2 % (22.0-44.0); MEAN CORPUSCULAR HEMOGLOBIN 20.5 pg (26.0-34.0); MEAN CORPUSCULAR HGB CONC 30.6 G/dL (31.0-37.0); MEAN CORPUSCULAR VOLUME 67 fL (80-100); MONOCYTES # (AUTO) 0.6 K/uL (0.1-1.0); MONOCYTES % (AUTO) 10.5 % (2.0-9.0); NEUTROPHILS # (AUTO) 3.1 K/uL (1.8-7.7); NEUTROPHILS % (AUTO) 52.3 % (40.0-70.0); PLATELET COUNT (AUTO) 333 K/uL (150-450); RED BLOOD CELL COUNT(AUTO) 4.68 MIL/uL (4.50-5.90); RED CELL DISTRIBUTION WIDTH 20.6 % (11.5-14.5); WHITE BLOOD COUNT (AUTO) 5.9 K/uL (4.5-11.0)
[2024-03-06 22:10] LABS: ANION GAP 9 mmol/L (8-16); CALCIUM, TOTAL 8.7 mg/dL (8.8-10.5); CARBON DIOXIDE 27 mmol/L (22-29); CHLORIDE 96 mmol/L (98-107); CREATININE 0.95 mg/dL (0.60-1.30); GLOMERULAR FILTR. RATE CALC > 60 mL/min (>60); GLUCOSE,RANDOM 339 mg/dL (70-110); POTASSIUM 4.3 mmol/L (3.5-5.1); SODIUM SERUM 132 mmol/L (136-145); UREA NITROGEN, BLOOD 16 mg/dL (7-18)
[2024-03-06 22:12] LABS: RBC MORPHOLOGY COMMENT ABNORMAL RBC MORPH
[2024-03-06 22:17] LABS: ALANINE AMINOTRANSFERASE 38 U/L (12-78); ALBUMIN 3.2 g/dL (3.4-5.0); ALKALINE PHOSPHATASE 148 U/L (46-116); ASPARTATE AMINOTRANSFERASE 36 U/L (15-37); BILIRUBIN,TOTAL 0.5 mg/dL (0.1-1.0); TOTAL PROTEIN, SERUM 7.6 g/dL (6.4-8.2)
[2024-03-06 22:18] LABS: ALCOHOL, BLOOD (SERUM) < 3 mg/dL (0-10)
[2024-03-06 22:25] LABS: SARS-COV2 (COVID) ANTIGEN,FIA Negative (Negative)
[2024-03-06] MEDS: SODIUM CHLORIDE 0.9% 1,000 ML IV ONE (23:28)
[2024-03-06] MEDS: INSULIN REGULAR, HUMAN 100 UNITS/ML IVP ONE (23:34)
[2024-03-07 00:27] LABS: GLUCOMETER DEV NAME(LOC) ER.7; GLUCOSE,POINT OF CARE 117 MG/DL (70-110)
[2024-03-07 04:05] VITALS: BP 120/65; PULSE 70; RESP 18
== END 2024-03-07 04:07 | disposition home or self-care (01) ==
LOC: EMS 19:25
DX: E11.65 Type 2 diabetes mellitus with hyperglycemia (principal); F20.9 Schizophrenia, unspecified; I10 Essential (primary) hypertension; F17.210 Nicotine dependence, cigarettes, uncomplicated; F15.90 Other stimulant use, unspecified, uncomplicated; Z98.890 Other specified postprocedural states; Z20.822 Contact with and (suspected) exposure to COVID-19
CPT/HCPCS: 99283; 96374; 96361; 87426; 80053; 82962; 85025; 36415; G0480; J1815; J7030

== ENCOUNTER 2024-03-12 23:22 | Emergency (ER) | payer MEDICAID ==
[~2024-03-12] VITALS: Ht 170.2 cm; Wt 86.4 kg
[2024-03-12 23:29] VITALS: TEMP 98.5
[2024-03-13 00:29] LABS: BASOPHILS % (AUTO) 1.4 % (0.0-2.0); EOSINOPHILS % (AUTO) 2.5 % (1.0-6.0); HEMATOCRIT 32.7 % (41-53); HEMOGLOBIN 10.1 g/dL (13.5-17.5); LYMPHOCYTES # (AUTO) 2.7 K/uL (1.0-4.8); LYMPHOCYTES % (AUTO) 43.5 % (22.0-44.0); MEAN CORPUSCULAR HEMOGLOBIN 20.6 pg (26.0-34.0); MEAN CORPUSCULAR HGB CONC 30.8 G/dL (31.0-37.0); MEAN CORPUSCULAR VOLUME 67 fL (80-100); MONOCYTES # (AUTO) 0.6 K/uL (0.1-1.0); MONOCYTES % (AUTO) 9.7 % (2.0-9.0); NEUTROPHILS # (AUTO) 2.6 K/uL (1.8-7.7); NEUTROPHILS % (AUTO) 42.9 % (40.0-70.0); PLATELET COUNT (AUTO) 431 K/uL (150-450); RED BLOOD CELL COUNT(AUTO) 4.89 MIL/uL (4.50-5.90); RED CELL DISTRIBUTION WIDTH 22.2 % (11.5-14.5); WHITE BLOOD COUNT (AUTO) 6.2 K/uL (4.5-11.0)
[2024-03-13] MEDS: ONDANSETRON HCL 4 MG/2 ML VIAL IVP ONE ×2 (00:31→00:42)
[2024-03-13] MEDS: SODIUM CHLORIDE 0.9% 1,000 ML IV ONE ×2 (00:31→00:41)
[2024-03-13 00:37] LABS: ANION GAP 8 mmol/L (8-16); CALCIUM, TOTAL 9.3 mg/dL (8.8-10.5); CARBON DIOXIDE 28 mmol/L (22-29); CHLORIDE 99 mmol/L (98-107); CREATININE 1.06 mg/dL (0.60-1.30); GLOMERULAR FILTR. RATE CALC > 60 mL/min (>60); GLUCOSE,RANDOM 199 mg/dL (70-110); POTASSIUM 3.6 mmol/L (3.5-5.1); SODIUM SERUM 135 mmol/L (136-145); UREA NITROGEN, BLOOD 16 mg/dL (7-18)
[2024-03-13 00:42] LABS: ALANINE AMINOTRANSFERASE 16 U/L (12-78); ALBUMIN 3.2 g/dL (3.4-5.0); ALKALINE PHOSPHATASE 87 U/L (46-116); ASPARTATE AMINOTRANSFERASE 11 U/L (15-37); BILIRUBIN,TOTAL 0.5 mg/dL (0.1-1.0); LIPASE 42 U/L (16-77); TOTAL PROTEIN, SERUM 7.5 g/dL (6.4-8.2)
[2024-03-13 01:48] LABS: RBC MORPHOLOGY COMMENT ABNORMAL RBC MORPH
[2024-03-13 02:00] LABS: APPEARANCE,URINE CLEAR (CLEAR); BILIRUBIN,URINE NEGATIVE (NEGATIVE); COLOR,URINE YELLOW (YELLOW); GLUCOSE, URINE (UA) 300-500 mg/dL (NEGATIVE); LEUKOCYTE ESTERASE ,URINE NEGATIVE (NEGATIVE); NITRATE,URINE NEGATIVE (NEGATIVE); OCCULT BLOOD,URINE NEGATIVE (NEGATIVE); PH,URINE 5.5 (5.0-8.0); PROTEIN,URINE 100-200,SEE CONFIRM mg/dL (NEGATIVE); SPECIFIC GRAVITIY, URINE 1.034 (1.003-1.030); UROBILINOGEN,URINE <=1.0 mg/dL (<=1.0)
[2024-03-13 02:09] LABS: BACTERIA,URINE None Seen /HPF (None Seen); RBC,URINE None Seen /HPF (0-2); SQUAMOUS EPITHELIAL CELL,UR Rare /LPF (None Seen); SULFOSALICYLIC ACID,URINE 1+ (Negative); WBC,URINE 0-2 /HPF (0-5)
[2024-03-13 03:01] VITALS: BP 101/58; PULSE 85; RESP 17
[2024-03-13] MEDS ORDERED: RISP3TAB35 PO (09:44)
[2024-03-13] MEDS ORDERED: LITH300C3 PO (09:44)
[2024-03-13] MEDS ORDERED: QUET300T19 PO (09:44)
[2024-03-13] MEDS ORDERED: DIVA-112 PO (09:44)
[2024-03-13] MEDS ORDERED: TRAZ-257 PO (09:44)
== END 2024-03-13 06:10 ==
LOC: EMS 23:22
DX: R11.2 Nausea with vomiting, unspecified (principal); E11.9 Type 2 diabetes mellitus without complications; I10 Essential (primary) hypertension; F20.9 Schizophrenia, unspecified; J44.9 Chronic obstructive pulmonary disease, unspecified; F17.210 Nicotine dependence, cigarettes, uncomplicated; F15.90 Other stimulant use, unspecified, uncomplicated
CPT/HCPCS: 99283; 80053; 81001; 83690; 85025; 36415; 96374; J2405; J7030; 81002